=== PATIENT | female | born 1945 | race Caucasian/White ===

== ENCOUNTER 2020-06-13 10:48 | Outpatient (REF) | payer MEDICARE, SELFPAY ==
[2020-06-13 14:09] LABS: Hemoglobin 13.4 g/dl (12.0-16.0); Mean Corpuscular HGB Conc 31.9 g/dl (31.0-35.0); Mean Corpuscular Hemoglobin 30.2 pg (27.0-33.0); Mean Corpuscular Volume 94.8 fL (80-98); Mean Platelet Volume 9.8 fL (9.4-12.3); Platelet Count 247 X10*3/uL (160-400); Red Blood Count 4.43 X10*6/uL (4.20-5.50); Red Cell Distribution Width 12.3 % (11.0-16.0); White Blood Count 5.8 X10*3/uL (4.8-10.8)
[2020-06-13 14:45] LABS: Alanine Aminotransferase 21 U/L (0-31); Albumin Level 4.4 g/dL (3.5-5.0); Alkaline Phosphatase 61 U/L (39-117); Anion Gap 12 (12-20); Aspartate Amino Transferase 26 U/L (5-31); Bilirubin Total 0.4 mg/dL (0.0-1.0); Blood Urea Nitrogen 17 mg/dL (9-16); Calcium 9.1 mg/dL (8.4-10.2); Carbon Dioxide 27 mmol/L (22-29); Chloride 104 mmol/L (96-108); Cholesterol 181 mg/dL; Estimated Glomerular Filt Rate > 60; Glucose Fasting 91 mg/dL (60-99); HDL Cholesterol 71 mg/dL; LDL Cholesterol Calculated 93 mg/dl; Potassium 4.3 mmol/l (3.3-5.1); Sodium 139 mmol/L (135-145); Total Protein 7.3 g/dL (6.5-8.0); Triglycerides 85 mg/dL
[2020-06-13 14:55] LABS: TSH reflex Free T4 2.08 mIU/mL (0.32-4.0)
== END 2020-06-13 10:49 | disposition home or self-care (01) ==
LOC: HO.10HDL 10:48
PROVIDERS: Visit Provider Physician Assistant
DX: I10 Essential (primary) hypertension (principal); E78.2 Mixed hyperlipidemia; Z13.1 Encounter for screening for diabetes mellitus; Z13.29 Encounter for screening for other suspected endocrine disorder
CPT/HCPCS: 36415; 80053; 80061; 84443; 85027

== ENCOUNTER 2021-02-05 11:09 | Outpatient (REF) | payer MEDICARE, OTHER, SELFPAY ==
[2021-02-05 14:44] LABS: Alanine Aminotransferase 20 U/L (0-31); Albumin Level 4.1 g/dL (3.5-5.0); Alkaline Phosphatase 60 U/L (39-117); Anion Gap 13 (12-20); Aspartate Amino Transferase 24 U/L (5-31); Bilirubin Total 0.6 mg/dL (0.0-1.0); Blood Urea Nitrogen 13 mg/dL (9-16); Calcium 9.1 mg/dL (8.4-10.2); Carbon Dioxide 24 mmol/L (22-29); Chloride 108 mmol/L (96-108); Cholesterol 174 mg/dL; Estimated Glomerular Filt Rate > 60; Glucose Fasting 81 mg/dL (60-99); HDL Cholesterol 63 mg/dL; LDL Cholesterol Calculated 92 mg/dl; Potassium 4.5 mmol/L (3.3-5.1); Sodium 140 mmol/L (135-145); Triglycerides 99 mg/dL
== END 2021-02-05 11:10 | disposition home or self-care (01) ==
LOC: HO.10HDL 11:09
PROVIDERS: Visit Provider Nurse Practitioner Family
DX: E78.5 Hyperlipidemia, unspecified (principal); Z13.1 Encounter for screening for diabetes mellitus; Z78.0 Asymptomatic menopausal state
CPT/HCPCS: 36415; 80053; 80061

== ENCOUNTER 2021-08-28 10:48 | Outpatient (REF) | payer MEDICARE, SELFPAY ==
[2021-08-28 11:50] LABS: Estimated Average Glucose 108 mg/dL; Hemoglobin A1c % 5.4 %
[2021-08-28 11:56] LABS: Hematocrit 39.3 % (37.0-47.0); Hemoglobin 12.6 g/dl (12.0-16.0); Mean Corpuscular HGB Conc 32.1 g/dl (31.0-35.0); Mean Corpuscular Hemoglobin 29.6 pg (27.0-33.0); Mean Corpuscular Volume 92.3 fL (80.0-98.0); Mean Platelet Volume 9.2 fL (9.4-12.3); Platelet Count 246 X10*3/uL (160-400); Red Blood Count 4.26 X10*6/uL (4.20-5.50); Red Cell Distribution Width 12.7 % (11.0-16.0)
[2021-08-28 12:20] LABS: Alanine Aminotransferase 21 U/L (0-31); Albumin Level 4.2 g/dL (3.5-5.0); Alkaline Phosphatase 57 U/L (39-117); Anion Gap 12 (12-20); Aspartate Amino Transferase 25 U/L (5-31); Bilirubin Total 0.5 mg/dL (0.0-1.0); Blood Urea Nitrogen 17 mg/dL (9-16); Calcium 9.5 mg/dL (8.4-10.2); Carbon Dioxide 26 mmol/L (22-29); Chloride 105 mmol/L (96-108); Cholesterol 163 mg/dL; Estimated Glomerular Filt Rate > 60; Glucose Fasting 93 mg/dL (60-99); HDL Cholesterol 59 mg/dL; LDL Cholesterol Calculated 86 mg/dl; Potassium 4.2 mmol/L (3.3-5.1); Sodium 139 mmol/L (135-145); Total Protein 7.1 g/dL (6.5-8.0); Triglycerides 90 mg/dL
[2021-08-28 12:25] LABS: TSH reflex Free T4 1.06 uIU/mL (0.32-4.0)
== END 2021-08-28 10:49 | disposition home or self-care (01) ==
LOC: HO.LAB 10:48
PROVIDERS: PCP Physician Assistant; Visit Provider Physician Assistant
DX: Z13.1 Encounter for screening for diabetes mellitus (principal); E78.2 Mixed hyperlipidemia
CPT/HCPCS: 36415; 80053; 80061; 83036; 84443; 85027

== ENCOUNTER 2022-01-29 10:51 | Outpatient (REF) | payer MEDICARE, SELFPAY ==
--- NOTE | ~2022-01-29 | XR_ITS ---
EXAMINATION: XR CHEST CLINICAL INFORMATION: Covid 19. Short of breath COMPARISON: None TECHNIQUE: 2 views of the chest were obtained. FINDINGS: The lungs are well-expanded and clear. The heart size and pulmonary vascularity is normal. There is mild dextro scoliosis of dorsolumbar spine. XR/XR chest 2V IMPRESSION: Unremarkable chest examination.
== END 2022-01-29 10:52 | disposition home or self-care (01) ==
LOC: HO.XRAY 10:51
PROVIDERS: PCP Physician Assistant; Visit Provider Internal Medicine
DX: U07.1 COVID-19 (principal)
CPT/HCPCS: 71046

== ENCOUNTER 2022-03-12 11:35 | Outpatient (REF) | payer MEDICARE, SELFPAY ==
[2022-03-12 12:00] LABS: MANUAL DIFF FLAG NO
[2022-03-12 12:29] LABS: Basophils Absolute Auto 0.1 X10*3/uL (0.0-0.2); Basophils Percent Auto 0.8 % (0-2); Eosinophils Absolute Auto 0.2 X10*3/uL (0.0-0.4); Eosinophils Percent Auto 3.1 % (0-4); Hematocrit 40.5 % (37.0-47.0); Hemoglobin 13.5 g/dl (12.0-16.0); Imm Gran Abs Auto 0.02 X10*3/uL (0.00-0.03); Imm Gran Pct Auto 0.3 % (0.0-0.4); Lymphocytes Absolute Auto 2.6 X10*3/uL (1.2-4.9); Lymphocytes Percent Auto 41.5 % (20-40); Mean Corpuscular HGB Conc 33.3 g/dl (31.0-35.0); Mean Corpuscular Volume 92.9 fL (80.0-98.0); Mean Platelet Volume 9.2 fL (9.4-12.3); Monocytes Absolute Auto 0.5 X10*3/uL (0.1-1.2); Neutrophils Absolute Auto 2.9 x10*3/uL (2.0-8.3); Neutrophils Percent Auto 46.3 % (45-73); Platelet Count 253 X10*3/uL (160-400); Red Blood Count 4.36 X10*6/uL (4.20-5.50); Red Cell Distribution Width 12.8 % (11.0-16.0); White Blood Count 6.2 X10*3/uL (4.8-10.8)
[2022-03-12 12:55] LABS: Alanine Aminotransferase 22 U/L (0-31); Albumin Level 4.4 g/dL (3.5-5.0); Alkaline Phosphatase 59 U/L (39-117); Anion Gap 16 (12-20); Aspartate Amino Transferase 27 U/L (5-31); Bilirubin Total 0.2 mg/dL (0.0-1.0); Blood Urea Nitrogen 13 mg/dL (9-16); Calcium 9.8 mg/dL (8.4-10.2); Carbon Dioxide 26 mmol/L (22-29); Chloride 104 mmol/L (96-108); Cholesterol 169 mg/dL; Estimated Glomerular Filt Rate > 60; Glucose Fasting 86 mg/dL (60-99); HDL Cholesterol 67 mg/dL; LDL Cholesterol Calculated 78 mg/dl; Potassium 4.1 mmol/L (3.3-5.1); Sodium 142 mmol/L (135-145); Total Protein 7.4 g/dL (6.5-8.0); Triglycerides 124 mg/dL
[2022-03-12 13:01] LABS: Creatinine Urine 43.08 mg/dL; Microalbum/Creatinine Ratio Ur 378.3 ug/mg cr
[2022-03-12 13:20] LABS: TSH reflex Free T4 1.56 uIU/mL (0.32-4.0)
== END 2022-03-12 11:36 | disposition home or self-care (01) ==
LOC: HO.LAB 11:35
PROVIDERS: PCP Physician Assistant; Visit Provider Physician Assistant
DX: I10 Essential (primary) hypertension (principal)
CPT/HCPCS: 36415; 80053; 80061; 82043; 84443; 85025

== ENCOUNTER 2022-04-24 14:04 | Outpatient (REF) | payer MEDICARE, SELFPAY ==
--- NOTE | ~2022-04-24 | US_ITS ---
EXAMINATION: US RETROPERITONEAL LIMITED (RENAL ONLY) CLINICAL INFORMATION: Proteinuria, unspecified. COMPARISON: None TECHNIQUE: Real-time imaging of the kidneys. FINDINGS: RIGHT KIDNEY: 8.9 x 3.8 x 4.3 cm (SAG x AP x TRV). The kidney is normal in size, contour, and echogenicity. Renal cortical thickness is normal. No calculi or focal parenchymal lesions. No hydronephrosis. LEFT KIDNEY: 8.9 x 4.8 x 4.2 cm (SAG x AP x TRV). The kidney is normal in size, contour, and echogenicity. Renal cortical thickness is normal. No calculi or focal parenchymal lesions. No hydronephrosis. ADDITIONAL FINDINGS: Gallstones. US/US renal BI IMPRESSION: Normal renal ultrasound.
== END 2022-04-24 14:05 | disposition home or self-care (01) ==
LOC: HO.US 14:04
PROVIDERS: Visit Provider Physician Assistant
DX: R80.9 Proteinuria, unspecified (principal)
CPT/HCPCS: 76775

== ENCOUNTER 2022-07-13 14:45 | Outpatient (REF) | payer MEDICARE, SELFPAY ==
[2022-07-13 15:17] LABS: Appearance Urine Clear; Color Urine Yellow; Glucose Urine UA Negative (Negative); Leukocyte Esterase Urine Moderate (2+) (Negative); Nitrite Urine Negative (Negative); UMIC TRIGGER UA YES; Urine Blood Trace (Negative); Urine Ketones Negative (Negative); Urine Protein 30 (1+) mg/dL (Neg-Trace)
[2022-07-13 15:19] LABS: Bacteria Urine None Seen (None Seen); Hyaline Casts Urine 0-2 /LPF (0-2); RBC Urine 0-2 /HPF (0-2); Squamous Epithelial Cell Urine 0-2 /HPF (0-2)
[2022-07-13 15:41] LABS: Creatinine Urine 55.09 mg/dL; Protein/Creatinine Ratio, Ur 0.78 (<0.2); Total Protein Urine Random 43 mg/dL (<12)
[2022-07-13 15:42] LABS: Anion Gap 15 (12-20); Blood Urea Nitrogen 14 mg/dL (9-16); Calcium 9.2 mg/dL (8.4-10.2); Carbon Dioxide 24 mmol/L (22-29); Chloride 105 mmol/L (96-108); Estimated Glomerular Filt Rate > 60; Glucose Random 87 mg/dL (60-115); Potassium 3.8 mmol/L (3.3-5.1); Sodium 140 mmol/L (135-145)
== END 2022-07-13 14:46 | disposition home or self-care (01) ==
LOC: HO.LAB 14:45
PROVIDERS: PCP Physician Assistant; Visit Provider Internal Medicine Hypertension Specialist
DX: R80.9 Proteinuria, unspecified (principal)
CPT/HCPCS: 36415; 80048; 81001; 84156

== ENCOUNTER 2022-12-21 15:29 | Outpatient (REF) | payer MEDICARE, SELFPAY ==
[2022-12-21 16:41] LABS: Hematocrit 39.7 % (37.0-47.0); Mean Corpuscular HGB Conc 32.7 g/dl (31.0-35.0); Mean Corpuscular Hemoglobin 30.4 pg (27.0-33.0); Mean Platelet Volume 9.2 fL (9.4-12.3); Platelet Count 243 X10*3/uL (160-400); Red Blood Count 4.27 X10*6/uL (4.20-5.50); Red Cell Distribution Width 12.6 % (11.0-16.0); White Blood Count 7.3 X10*3/uL (4.8-10.8)
[2022-12-21 17:06] LABS: Alanine Aminotransferase 29 U/L (0-31); Albumin Level 3.9 g/dL (3.5-5.0); Alkaline Phosphatase 69 U/L (39-117); Anion Gap 16 (12-20); Aspartate Amino Transferase 30 U/L (5-31); Bilirubin Total 0.4 mg/dL (0.0-1.0); Blood Urea Nitrogen 22 mg/dL (9-16); Calcium 9.3 mg/dL (8.4-10.2); Carbon Dioxide 23 mmol/L (22-29); Chloride 106 mmol/L (96-108); Cholesterol 167 mg/dL; Estimated Glomerular Filt Rate > 60; Glucose Fasting 104 mg/dL (60-99); HDL Cholesterol 61 mg/dL; LDL Cholesterol Calculated 92 mg/dl; Potassium 4.1 mmol/L (3.3-5.1); Sodium 141 mmol/L (135-145); Total Protein 7.1 g/dL (6.5-8.0); Triglycerides 73 mg/dL
== END 2022-12-21 15:30 | disposition home or self-care (01) ==
LOC: HO.LAB 15:29
PROVIDERS: PCP Physician Assistant; Visit Provider Physician Assistant
DX: E78.2 Mixed hyperlipidemia (principal); I10 Essential (primary) hypertension
CPT/HCPCS: 36415; 80053; 80061; 85027

== ENCOUNTER 2023-03-23 11:08 | Outpatient (REF) | payer MEDICARE, SELFPAY ==
[2023-03-23 11:59] LABS: Appearance Urine Clear; Color Urine Yellow; Glucose Urine UA Negative (Negative); Leukocyte Esterase Urine Small (1+) (Negative); Nitrite Urine Negative (Negative); PH 6.5 (5.0-9.0); Specific Gravity - Urine 1.015 (1.005-1.025); UMIC TRIGGER UACC YES; Urine Blood Moderate (2+) (Negative); Urine Ketones Negative (Negative); Urine Protein 300 (3+) mg/dL (Neg-Trace)
[2023-03-23 12:02] LABS: Bacteria Urine 4+ (None Seen); Squamous Epithelial Cell Urine 0-2 /HPF (0-2); UACC Culture Trigger YES; WBC Urine 21-50 /HPF (0-5)
== END 2023-03-23 11:09 | disposition home or self-care (01) ==
LOC: HO.LAB 11:08
PROVIDERS: PCP Physician Assistant; Visit Provider Physician Assistant
DX: R39.9 Unspecified symptoms and signs involving the genitourinary system (principal)
CPT/HCPCS: 81001; 87086; 87088; 87186

== ENCOUNTER 2023-04-02 11:38 | Outpatient (REF) | payer MEDICARE, SELFPAY ==
[2023-04-02 15:05] LABS: Appearance Urine Clear; Color Urine Yellow; Glucose Urine UA Negative (Negative); Leukocyte Esterase Urine Negative (Negative); Nitrite Urine Negative (Negative); UMIC TRIGGER UACC YES; Urine Blood Small (1+) (Negative); Urine Ketones Trace mg/dL (Negative); Urine Protein >=1000 (4+) mg/dL (Neg-Trace)
[2023-04-02 15:24] LABS: Bacteria Urine None Seen (None Seen); Squamous Epithelial Cell Urine 0-2 /HPF (0-2); UACC Culture Trigger YES
== END 2023-04-02 11:39 | disposition home or self-care (01) ==
LOC: HO.LAB 11:38
PROVIDERS: PCP Physician Assistant; Visit Provider Physician Assistant
DX: R39.9 Unspecified symptoms and signs involving the genitourinary system (principal)
CPT/HCPCS: 81001; 81003; 87086

== ENCOUNTER 2023-04-21 10:41 | Outpatient (REF) | payer MEDICARE, SELFPAY ==
[2023-04-21 11:59] LABS: Appearance Urine Clear; Color Urine Yellow; Glucose Urine UA Negative (Negative); Leukocyte Esterase Urine Trace (Negative); Nitrite Urine Negative (Negative); UMIC TRIGGER UACC YES; Urine Blood Small (1+) (Negative); Urine Ketones Negative (Negative); Urine Protein 300 (3+) mg/dL (Neg-Trace)
[2023-04-21 12:32] LABS: Bacteria Urine None Seen (None Seen); Hyaline Casts Urine 0-2 /LPF (0-2); Squamous Epithelial Cell Urine 0-2 /HPF (0-2); UACC Culture Trigger YES
== END 2023-04-21 10:42 | disposition home or self-care (01) ==
LOC: HO.LAB 10:41
PROVIDERS: PCP Physician Assistant; Visit Provider Physician Assistant
DX: R39.9 Unspecified symptoms and signs involving the genitourinary system (principal)
CPT/HCPCS: 81001; 87086

== ENCOUNTER 2023-05-05 09:45 | Outpatient (AMB) | payer MEDICARE, SELFPAY ==
[2023-05-05 10:07] VITALS: BP 140/70; PULSE 66; O2SAT 98; BMI 24.8
--- NOTE | 2023-05-05 10:07 | A.OFFPC_ITS ---
Vital Signs 05/05/23 10:07 Height 5 ft 1 in Weight 131 lb 4 oz BMI 24.8 BP 140/70 H Blood Pressure Location Lt brachial Position Sitting Pulse 66 Pulse Source Palpation Pulse Oximetry (%) 98 Oxygen Delivery Method Room Air Intake Visit Reasons: f/u HTN / HLD [employer] Worker Required: No Accompanied by: Self / Same As Patient Allergies hydroxyzine Adverse Reaction (Mild, Verified 05/05/23 10:27) Palpitations Medication List - Last Reconciled 05/05/23 by Santos Chicas PA-C albuterol sulfate 90 mcg/actuation 2 puffs inhalation Q6H PRN 30 days ciprofloxacin HCl 250 mg PO BID 4 days ergocalciferol (vitamin D2) 50 mcg PO DAILY lorazepam 0.5 mg PO DAILY PRN 7 days losartan 25 mg PO DAILY 90 days multivitamin 1 tab PO DAILY simvastatin 20 mg PO BEDTIME Tobacco use date assessed: 11/04/22 Fall risk assessment: No Falls in past year Last assessed Fall Risk: 05/05/23 Dental Screening Dental Screen Date: 05/05/23 Did you have a dental visit in the last 12 months?: Yes Did you have a dental problem in the last 6 months where you did not have access to dental care?: No Was dental information given to patient?: Patient has dentist HPI f/u HTN / HLD HPI Details Patient is a 76-year-old female being evaluated today via telephone.? Patient has a past medical history significant for hyperlipidemia, essential hypertension. --> concern recurrent UTI--> has had a f ew UTIs over the last 2 months. Has been treated with ciprofloxacin which has helped. She did have positive culture for Klebsiella pneumoniae. Unclear etiologies are her recurrent UTI thus will like to see a urologist. . Generalized anxiety disorder: She reports her anxiety has been well controlled. Her has and she feels she has support with her family. She only seldomly has to use lorazepam. . Hypertension:? She reports home blood pressures have been 120s to 130 systolic. Has not had any chest discomfort or headaches.? Patient did have Tung-I related cough and was transition to losartan and feels much better. Have noted elevated microalbuminuria and has had 2+ to 3+ protein in urine for many years now. 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 Has had renal ultrasound did not show any renal cysts. .. Hyperlipidemia:? Patient continues on statin therapy without any side effect.? Most recent LDL at 76 and total cholesterol below 200. [facility] Medical History (Updated 05/05/23 @ 10:22 by Santos Chicas PA-C) COVID-19 Post-menopausal Screening for hypothyroidism Surgical History History of cataract surgery Family History Father No problems noted. Mother No problems noted. Son In good health Son In good health Son In good health Social History Housing: House Alcohol intake: current Alcohol intake frequency: holidays/special occasions only Alcohol type: wine Patient Tobacco Use Status: Never used Tobacco e-Cigarette/Vaping Use: Never Used Second Hand Smoke Exposure: No service: No Current occupational status: retired Cognitive needs: No Hearing needs: No Vision needs: Yes (reading glasses) Questionnaire Thrive Questionnaire Date Thrive assessed: 11/04/22 KELSEY-7 AMB Questionnaire KELSEY-7 Date KELSEY - 7 assessed: 11/04/22 Source: Developed by Drs. Gustavo Dickey, Kami Gavin, Deandre Francis and colleagues, with an educational soham from [employer]. Review of Systems Const Denies headache(s) Eyes Denies loss of vision ENT Denies vertigo, Denies dizziness, Denies headache(s) and Denies sore throat Card Denies chest pain, Denies leg edema and Denies lightheadedness Resp Denies cough, Denies hemoptysis and Denies wheezing GI Denies abdominal pain, Denies melena, Denies constipation, Denies diarrhea and Denies vomiting Denies urinary frequency, Denies dysuria and Denies urinary urgency Musc Denies arthralgias, Denies joint swelling, Denies numbness and Denies tingling Neuro Denies Abnormal speech present, Denies behavioral changes, Denies vertigo, Denies dizziness, Denies headache(s), Denies loss of vision, Denies memory loss, Denies numbness and Denies tingling Psych Denies anxiety, Denies behavioral changes, Denies depression, Denies memory loss and Denies panic attacks Lele/Lymph Denies easy bleeding and Denies easy bruising Aller/Immun Denies wheezing Physical exam (Primary Care) Vital Signs: Last Vital Signs Pulse 66 05/05/23 10:07 BP 140/70 H 05/05/23 10:07 Pulse Ox 98 05/05/23 10:07 Oxygen Delivery Method Room Air 05/05/23 10:07 BMI result Body Mass Index 24.8 Tobacco/Smoking Status: Tobacco use Status Tobacco use date assessed 11/04/22 05/05/23 10:09 Patient Tobacco Use Status Never used Tobacco 05/05/23 10:09 e-Cigarette/Vaping Use Never Used 05/05/23 10:09 Thrive Assessment: Date of Thrive Assessment Date Thrive assessed 11/04/22 05/05/23 10:09 Const General: healthy appearing, no acute distress, alert and awake Nutritional Appearance: well nourished Orientation/consciousness: oriented to person, oriented to place and oriented to time HENMT Ears: TM's normal bilaterally General nose exam: Normal nasal mucous membranes and turbinates present Eyes Conjunctivae: conjunctivae normal Sclerae: sclerae normal Pupils: Equal, round and reactive pupils present Neck Neck: Yes no lymphadenopathy and Yes no JVD Thyroid: Thyroid normal Carotids: no bruits Resp Effort & Inspection: normal respiratory effort and not tachypneic Auscultation: no crackles, no rales, no rhonchi and no wheezes Cardio Rate: regular rate Rhythm: regular rhythm Heart sounds: no murmurs and normal S1 and S2 GI Palpation (GI): Soft to palpation, nontender, no hepatomegaly and no splenomegaly Auscultation: normal bowel sounds Skin General skin exam: no rashes or lesions noted and dry skin Neuro General: oriented to person, oriented to place and oriented to time Cranial nerves: Yes Equal, round and reactive pupils present Speech: No Abnormal speech present Gait exam (Neuro): Normal gait present Motor exam (neuro): no tremor noted Extrem Right upper extremity: full ROM Left upper extremity: full ROM Right lower extremity: full ROM; no edema Left lower extremity: full ROM; no edema Psych Mental Status: mental status grossly normal Speech and movement: Normal speech and movement present Affect: normal affect Attitude: cooperative Thought process: Normal thought process present Assessment and Plan Assessment & Plan (1) Essential (primary) hypertension: Code(s): I10 - Essential (primary) hypertension Plan: Patient reports home blood pressures have been stable. Will continue her current dose of antihypertensive medication with goal blood pressure to be below 140/90 (2) HLD (hyperlipidemia): Code(s): E78.5 - Hyperlipidemia, unspecified Qualifiers: Hyperlipidemia type: mixed hyperlipidemia Qualified Code(s): E78.2 - Mixed hyperlipidemia Plan: Patient continues on statin therapy without any side effect. Most recent fasting lipid panels have been with excellent control over her total cholesterol and LDL. Goal LDL to remain below 130 (3) Protein in urine: Code(s): R80.9 - Proteinuria, unspecified Qualifiers: Proteinuria type: unspecified Qualified Code(s): R80.9 - Proteinuria, unspecified Plan: Has been evaluated by package winder and had gotten protein testing to which she reports was normal. Renal ultrasounds were without any significant findings. (4) Recurrent UTI: Code(s): N39.0 - Urinary tract infection, site not specified Plan: Having recurrent UTIs over last 2 months. Did have positive Klebsiella pneumonia culture. We would like to reestablish with urologist (5) SOB (shortness of breath) on exertion: Code(s): R06.02 - Shortness of breath Plan: Patient does use albuterol inhaler on a p.r.n. basis for shortness of breath and wheeze. Advised to restart allergy medication as a believe she has an allergy component to her shortness of breath and patient agrees and understands and will restart antihistamine. (6) KELSEY (generalized anxiety disorder): Code(s): F41.1 - Generalized anxiety disorder Plan: As per HPI patient is anxiety has been fairly well controlled with only p.r.n. use of lorazepam. She does feel like she has good family support. Of note has been recently from lung cancer and patient dealing with this well.. Orders: Orders Comprehensive [place]. Panel Fast 05/05/23 I10 - Essential (primary) hypertension Complete Blood Count no Diff 05/05/23 I10 - Essential (primary) hypertension Lipid Panel 05/05/23 E78.2 - Mixed hyperlipidemia Referrals Urology Referral N39.0 - Urinary tract infection, site not specified Medications: Refilled albuterol sulfate 90 mcg/actuation 2 puffs inhalation Q6H 30 days PRN 8.5 grams 1RF shortness of breath or wheezing R06.02 - Shortness of breath Discontinued ciprofloxacin HCl Discontinued Reason: Doctor's Order 250 mg PO BID 4 days 8 tabs 0RF N39.0 - Urinary tract infection, site not specified Coding Level of Care Code Est Pt Level 4 (80239) Diagnoses Essential (primary) hypertension I10 Mixed hyperlipidemia E78.2 Hyperlipidemia type: mixed hyperlipidemia Proteinuria, unspecified type R80.9 Proteinuria type: unspecified Recurrent UTI N39.0 SOB (shortness of breath) on exertion R06.02 KELSEY (generalized anxiety disorder) F41.1
== END 2023-05-05 10:43 | disposition home or self-care (01) ==
PROVIDERS: PCP Physician Assistant; Visit Provider Physician Assistant
DX: I10 Essential (primary) hypertension (principal); E78.2 Mixed hyperlipidemia; R80.9 Proteinuria, unspecified; N39.0 Urinary tract infection, site not specified; R06.02 Shortness of breath; F41.1 Generalized anxiety disorder
CPT/HCPCS: 99214

== ENCOUNTER 2023-05-05 10:52 | Outpatient (REF) | payer MEDICARE, SELFPAY ==
[2023-05-05 11:30] LABS: Hematocrit 38.9 % (37.0-47.0); Hemoglobin 12.8 g/dl (12.0-16.0); Mean Corpuscular HGB Conc 32.9 g/dl (31.0-35.0); Mean Corpuscular Hemoglobin 30.7 pg (27.0-33.0); Mean Corpuscular Volume 93.3 fL (80.0-98.0); Mean Platelet Volume 8.7 fL (9.4-12.3); Platelet Count 253 X10*3/uL (160-400); Red Blood Count 4.17 X10*6/uL (4.20-5.50); Red Cell Distribution Width 12.4 % (11.0-16.0); White Blood Count 6.4 X10*3/uL (4.8-10.8)
[2023-05-05 12:01] LABS: Alanine Aminotransferase 21 U/L (0-31); Albumin Level 3.8 g/dL (3.5-5.0); Alkaline Phosphatase 56 U/L (39-117); Anion Gap 11 (12-20); Aspartate Amino Transferase 27 U/L (5-31); Bilirubin Total 0.4 mg/dL (0.0-1.0); Blood Urea Nitrogen 14 mg/dL (9-16); Calcium 9.6 mg/dL (8.4-10.2); Carbon Dioxide 27 mmol/L (22-29); Chloride 106 mmol/L (96-108); Cholesterol 194 mg/dL (<200); Estimated Glomerular Filt Rate > 60; Glucose Fasting 93 mg/dL (60-99); HDL Cholesterol 80 mg/dL (>40); LDL Cholesterol Calculated 97 mg/dL (<100); Potassium 3.9 mmol/L (3.3-5.1); Sodium 140 mmol/L (135-145); Total Protein 7.1 g/dL (6.5-8.0); Triglycerides 89 mg/dL (<150)
[2023-05-05 12:04] LABS: Appearance Urine Clear; Color Urine Yellow; Glucose Urine UA Negative (Negative); Leukocyte Esterase Urine Negative (Negative); Nitrite Urine Negative (Negative); Specific Gravity - Urine 1.015 (1.005-1.025); UMIC TRIGGER UACC YES; Urine Blood Small (1+) (Negative); Urine Ketones Negative (Negative); Urine Protein 300 (3+) mg/dL (Neg-Trace)
[2023-05-05 12:19] LABS: Bacteria Urine None Seen (None Seen); Hyaline Casts Urine 0-2 /LPF (0-2); Squamous Epithelial Cell Urine 0-2 /HPF (0-2); WBC Urine 0-5 /HPF (0-5)
== END 2023-05-05 10:53 | disposition home or self-care (01) ==
LOC: HO.LAB 10:52
PROVIDERS: PCP Physician Assistant; Visit Provider Physician Assistant
DX: I10 Essential (primary) hypertension (principal); E78.2 Mixed hyperlipidemia; R39.9 Unspecified symptoms and signs involving the genitourinary system; R30.0 Dysuria; N39.0 Urinary tract infection, site not specified
CPT/HCPCS: 36415; 80053; 80061; 81001; 81003; 85027

== ENCOUNTER 2023-05-11 12:15 | Outpatient (AMB) | payer MEDICARE, SELFPAY ==
--- NOTE | 2023-05-11 14:36 | AM.OFFWIN_ITS ---
Intake Vital Signs 05/11/23 14:38 Height 5 ft 1 in Weight 132 lb 8 oz BMI 25.0 BP 148/72 H Blood Pressure Location Rt brachial Position Sitting Pulse 89 Pulse Source Pulse Oximeter Temp 97.9 F Temp Source Temporal Artery Scan Pulse Oximetry (%) 97 Oxygen Delivery Method Room Air Intake Visit Reasons: EP, cough, congestion (masked) Intake Note: Pt is here c/o cough and congestion for 3 days. Patient Tobacco Use Status: Never used Tobacco Allergies hydroxyzine Adverse Reaction (Mild, Verified 05/11/23 14:40) Palpitations Do you need a note to return to daycare/school/sports/work: No HPI HPI Comments History of Present Illness Details This is a 78-year-old female with a past medical history of seasonal allergies, hypertension, asthma and hyperlipidemia presenting for evaluation of a cough and sinus congestion that she has had for the past 3 days. Patient stat es her cough is most bothersome during the day and will be productive with yellow phlegm. Patient denies having any fevers, chills, ear pain, sore throat, chest pain or shortness of breath. Patient has been using an [id number] generic decongestant and her albuterol inhaler. Patient states she is uncomfortable using her albuterol inhaler over 3 times daily. [facility] Medical History COVID-19 Post-menopausal Screening for hypothyroidism Surgical History History of cataract surgery Family History Father No problems noted. Mother No problems noted. Son In good health Son In good health Son In good health Social History Housing: House Alcohol intake: current Alcohol intake frequency: holidays/special occasions only Alcohol type: wine Patient Tobacco Use Status: Never used Tobacco e-Cigarette/Vaping Use: Never Used Second Hand Smoke Exposure: No service: No Current occupational status: retired Cognitive needs: No Hearing needs: No Vision needs: Yes (reading glasses) Review of Systems Const Reports no additional complaints, Denies chills, Denies fever(s) and Denies malaise Eyes Reports as per HPI ENT Denies otalgia, Reports nasal congestion and Denies sore throat Card Reports no additional complaints, Denies chest pain, Denies dyspnea and Denies dyspnea on exertion Resp Reports cough (occasional yellow phlegm), Denies excessive phlegm production, Denies dyspnea and Denies dyspnea on exertion Musc Reports no additional complaints Psych Reports no additional complaints Aller/Immun Reports no additional complaints Physical Exam Vital Signs: Last Vital Signs Temp 97.9 F 05/11/23 14:38 Pulse 89 05/11/23 14:38 BP 148/72 H 05/11/23 14:38 Pulse Ox 97 05/11/23 14:38 Oxygen Delivery Method Room Air 05/11/23 14:38 BMI result Body Mass Index 25.0 Const General: cooperative, healthy appearing, comfortable, no acute distress, alert and awake; No lethargic Nutritional Appearance: average body habitus Orientation/consciousness: oriented to person, oriented to place, oriented to time and No lethargic Limitations: no limitations HEENT Head: Yes normal to inspection Ears: hearing grossly normal bilaterally, external ears normal, TM's normal bilaterally and EAC's normal General nose exam: Normal external nose present Face and sinus: Yes normal facial exam and No sinus tenderness Mouth: Normal oral and palatal mucosa present Teeth and gingiva: dentition normal Throat: Yes posterior oropharynx normal and No postnasal drainage Eyes Eyelids: Yes eyelids normal Conjunctivae: conjunctivae normal Sclerae: sclerae normal Pupils: Equal, round and reactive pupils present EOM: EOMs intact bilaterally Neck Lymphatic: no lymphadenopathy noted Resp Effort & Inspection: normal respiratory effort (No tachypnea), able to speak in complete sentences and no respiratory distress Auscultation: clear to auscultation bilaterally Cardio Rate: regular rate Rhythm: regular rhythm Skin General skin exam: no rashes or lesions noted Neuro General: oriented to person, oriented to place and oriented to time Cranial nerves: Yes Equal, round and reactive pupils present Psych Appearance: grossly normal Mental Status: mental status grossly normal Insight: Good insight present (Psych) Judgement: Good judgement present (Psych) Assessment & Plan Assessment & Plan (1) Upper respiratory infection: Code(s): J06.9 - Acute upper respiratory infection, unspecified Qualifiers: URI type: unspecified viral URI Qualified Code(s): J06.9 - Acute upper respiratory infection, unspecified (2) Asthma: Code(s): J45.909 - Unspecified asthma, uncomplicated Plan: Mucinex OTC with increasing her clear fluids daily. Plan Prednisone 40mg daily x 4 days; goal is to decrease albuterol use. Medications: New prednisone 40 mg (2 x 20 mg) PO DAILY 8 tabs 0RF Coding Level of Care Code Est Pt Level 3 (74565) Diagnoses Viral upper respiratory tract infection J06.9 URI type: unspecified viral URI Asthma J45.909 Time Spent (min) 20
[2023-05-11 14:38] VITALS: BP 148/72; PULSE 89; TEMP 36.6; O2SAT 97; BMI 25.0
== END 2023-05-11 15:06 | disposition home or self-care (01) ==
PROVIDERS: PCP Physician Assistant; Visit Provider Physician Assistant
DX: J06.9 Acute upper respiratory infection, unspecified (principal); J45.909 Unspecified asthma, uncomplicated
CPT/HCPCS: 99213

== ENCOUNTER 2023-06-04 09:41 | Outpatient (AMB) | payer MEDICARE, SELFPAY ==
[2023-06-04 10:57] VITALS: BP 140/80; PULSE 98; TEMP 36.3; O2SAT 97; BMI 25.1
--- NOTE | 2023-06-04 10:57 | MHC.OFFWIV ---
Intake Vital Signs 06/04/23 10:57 Height 5 ft 1 in Weight 133 lb BMI 25.1 BP 140/80 H Blood Pressure Location Lt brachial Position Sitting Pulse 98 Pulse Source Pulse Oximeter Temp 97.3 F Temp Source Temporal Artery Scan Pulse Oximetry (%) 97 Oxygen Delivery Method Room Air Intake Visit Reasons: EST/asthma flair up ([phone]) Intake Note: pt is here today for asthma flair up started 2 weeks ago Patient Tobacco Use Status: Never used Tobacco Allergies hydroxyzine Adverse Reaction (Mild, Verified 06/04/23 10:57) Palpitations losartan Adverse Reaction (Mild, Uncoded 05/26/23 14:50) Cough Do you need a note to return to daycare/school/sports/work: No HPI HPI Comments History of Present Illness Details This is a 78-year-old female with past medical history significant for asthma who presented to the walk-in clinic complaining mild shortness of breath and dry cough x5 days. Patient was seen in the walk-in clinic on 05/11/2023 for similar symptoms and she was sent home on PO prednisone 40 mg daily x4 days. She states that her symptoms improved but quickly returned after shoveling snow in the cold. She reports an associated dry cough. She denies any fevers or chills. [facility] Medical History COVID-19 Post-menopausal Screening for hypothyroidism Surgical History History of cataract surgery Family History Father No problems noted. Mother No problems noted. Son In good health Son In good health Son In good health Social History Housing: House Alcohol intake: current Alcohol intake frequency: holidays/special occasions only Alcohol type: wine Patient Tobacco Use Status: Never used Tobacco e-Cigarette/Vaping Use: Never Used Second Hand Smoke Exposure: No service: No Current occupational status: retired Cognitive needs: No Hearing needs: No Vision needs: Yes (reading glasses) Review of Systems Const All systems reviewed & are unremarkable except as noted in HPI and below Reports no additional complaints Eyes Reports no additional complaints ENT Reports no additional complaints Card Reports no additional complaints Resp Reports no additional complaints GI Reports no additional complaints Reports no additional complaints Musc Reports no additional complaints Skin/Breast Reports system reviewed and no additional complaints, except as documented Neuro Reports no additional complaints Psych Reports no additional complaints Endo Reports no additional complaints Lele/Lymph Reports no additional complaints Aller/Immun Reports no additional complaints Physical Exam Vital Signs: Last Vital Signs Temp 97.3 F 06/04/23 10:57 Pulse 98 06/04/23 10:57 BP 140/80 H 06/04/23 10:57 Pulse Ox 97 06/04/23 10:57 Oxygen Delivery Method Room Air 06/04/23 10:57 BMI result Body Mass Index 25.1 Const Other: Vital signs reviewed. Constitutional: Non-toxic appearing. No acute distress. Well-developed and well-nourished. HEENT: Normocephalic and atraumatic. Skin: Warm and dry. No rashes or lesions noted. Neck: Full and painless range of motion. No cervical lymphadenopathy. Cardio: Regular rate and rhythm. No murmurs, gallops, or rubs. No lower extremity edema. No JVD. Pulmonary: No respiratory distress. No accessory muscle usage. Scattered wheezing and rhonchorous breath sounds. Gastrointestinal: Soft, nontender, and nondistended in all 4 quadrants. Musculoskeletal: Normal range of motion in joints throughout the body. No deformity or other signs of injury. Neuro: Alert and oriented x4. Cranial nerves 2-12 grossly intact. No focal deficits appreciated. Psych: Normal mood and affect. Assessment & Plan Assessment & Plan (1) Acute asthmatic bronchitis: Code(s): J45.909 - Unspecified asthma, uncomplicated Plan: This is a 78-year-old female with history of asthma who presented to the walk-in clinic complaining of dyspnea on exertion and a dry cough. On physical examination, she is expiratory wheezing and rhonchorous breath sounds throughout. History and physical most consistent with acute asthmatic bronchitis likely secondary to environmental exposure. Patient is maintaining oxygen saturations on room air and she is in no acute respiratory distress. Patient was sent home on a p.o. prednisone taper as well as p.o. benzonatate 100 mg 3 times daily as needed for cough. Patient was encouraged to discuss maintenance treatment such as Symbicort/Advair with her primary care physician given frequent asthma exacerbations. Patient was advised to follow-up here or proceed to the emergency room if she were to develop persistent or worsening symptoms. Patient verbalized understanding and is agreeable with the plan. Medications: New prednisone Take 4 tablets daily x3 days followed by 3 tablets daily x3 days followed by 2 tablets daily x3 days followed by 1 tablet daily x3 days followed by 1/2 tablet daily x2 days 10 mg PO DIRECTED 31 tabs 0RF benzonatate 100 mg PO TID PRN 21 caps 0RF cough Coding Level of Care Code Est Pt Level 3 (68906) Diagnoses Acute asthmatic bronchitis J45.909
== END 2023-06-04 11:37 | disposition home or self-care (01) ==
PROVIDERS: PCP Physician Assistant; Visit Provider Physician Assistant Medical
DX: J45.909 Unspecified asthma, uncomplicated (principal)
CPT/HCPCS: 99213

== ENCOUNTER 2023-07-15 12:10 | Outpatient (REF) | payer MEDICARE, SELFPAY ==
[2023-07-15 13:50] LABS: Anion Gap 11 (12-20); Blood Urea Nitrogen 22 mg/dL (9-16); Calcium 9.7 mg/dL (8.4-10.2); Carbon Dioxide 28 mmol/L (22-29); Chloride 106 mmol/L (96-108); Estimated Glomerular Filt Rate > 60; Sodium 141 mmol/L (135-145)
== END 2023-07-15 12:11 | disposition home or self-care (01) ==
LOC: HO.LAB 12:10
PROVIDERS: PCP Physician Assistant; Visit Provider Internal Medicine Hypertension Specialist
DX: I10 Essential (primary) hypertension (principal)
CPT/HCPCS: 36415; 80051; 82310; 82565; 84520

== ENCOUNTER 2023-07-22 11:53 | Outpatient (AMB) | payer MEDICARE, SELFPAY ==
--- NOTE | 2023-07-22 11:53 | HO.NEPHOV ---
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 Mother No problems noted. Son In good health Son In good health Son In good health Social History Housing: House Alcohol intake: current Alcohol intake frequency: holidays/special occasions only Alcohol type: wine Patient Tobacco Use Status: Never used Tobacco e-Cigarette/Vaping Use: Never Used Second Hand Smoke Exposure: No service: No Current occupational status: retired Cognitive needs: No Hearing needs: No Vision needs: Yes (reading glasses) Vital Signs 07/22/23 11:55 Height 5 ft 1 in Weight 133 lb BMI 25.1 BP 156/80 H Blood Pressure Location Rt brachial Position Sitting Pulse 90 Pulse Source Pulse Oximeter Pulse Oximetry (%) 99 Oxygen Delivery Method Room Air Physical Exam Vital Signs: Last Vital Signs Pulse 90 07/22/23 11:55 BP 156/80 H 07/22/23 11:55 Pulse Ox 99 07/22/23 11:55 Oxygen Delivery Method Room Air 07/22/23 11:55 BMI result Body Mass Index 25.1 Const Other: Vital signs reviewed. Constitutional: Non-toxic appearing. No acute distress. Well-developed and well-nourished. HEENT: Normocephalic and atraumatic. Skin: Warm and dry. No rashes or lesions noted. Neck: Full and painless range of motion. No cervical lymphadenopathy. Cardio: Regular rate and rhythm. No murmurs, gallops, or rubs. No lower extremity edema. No JVD. Pulmonary: No respiratory distress. No accessory muscle usage. Scattered wheezing and rhonchorous breath sounds. Gastrointestinal: Soft, nontender, and nondistended in all 4 quadrants. Musculoskeletal: Normal range of motion in joints throughout the body. No deformity or other signs of injury. Neuro: Alert and oriented x4. Cranial nerves 2-12 grossly intact. No focal deficits appreciated. Psych: Normal mood and affect. General: cooperative, healthy appearing, comfortable and no acute distress; No confusion Orientation/consciousness: No confusion Resp Effort & Inspection: normal respiratory effort and able to speak in complete sentences Auscultation: clear to auscultation bilaterally Cardio Jugular venous distension: no JVD Rate: regular rate Rhythm: regular rhythm Heart sounds: S1 normal heart sound present and S2 normal heart sound present Neuro General: No confusion Gait exam (Neuro): Normal gait present Extrem General: Yes no clubbing, cyanosis or edema Psych Mental Status: mental status grossly normal Affect: normal affect Attitude: cooperative Judgement: Good judgement present (Psych) Assessment & Plan Assessment & Plan (1) Essential (primary) hypertension: Code(s): I10 - Essential (primary) hypertension (2) Recurrent UTI: Code(s): N39.0 - Urinary tract infection, site not specified (3) Protein in urine: Code(s): R80.9 - Proteinuria, unspecified Qualifiers: Proteinuria type: unspecified Qualified Code(s): R80.9 - Proteinuria, unspecified Plan Elderly woman with HTN and non nephrotic range proteinuria and normal renal function Unable to tolerate ACEi and ARB due to cough Will quantify proteinuria and initiate work up for preotinuria Keep Amlodipine at 2.5 mg QD ; 5mg might cause more edema Add Spironolactone 12.5 mg QD to block ZOIE and gradually titrate dose Orders: Orders UA and rflx microscopic Today I10 - Essential (primary) hypertension, N39.0 - Urinary tract infection, site not specified Creatinine Urine Today I10 - Essential (primary) hypertension, N39.0 - Urinary tract infection, site not specified Total Protein Urine Random Today I10 - Essential (primary) hypertension, N39.0 - Urinary tract infection, site not specified Basic Metabolic Panel Today I10 - Essential (primary) hypertension, N39.0 - Urinary tract infection, site not specified Medications: New spironolactone 25 mg PO DAILY 0.5 tabs 1RF Changed From amlodipine 5 mg PO DAILY 30 tabs 1RF I10 - Essential (primary) hypertension To amlodipine 2.5 mg PO DAILY 30 tabs 1RF I10 - Essential (primary) hypertension Coding Level of Care Code New Pt Level 4 (84594) Diagnoses Essential (primary) hypertension I10 Recurrent UTI N39.0 Proteinuria, unspecified type R80.9 Proteinuria type: unspecified Results Reviewed Nephrology Results: Hgb 12.8 g/dl (12.0-16.0) 05/05/23 WBC 6.4 X10*3/uL (4.8-10.8) 05/05/23 Plt Count 253 X10*3/uL (160-400) 05/05/23 Sodium 141 mmol/L (135-145) 07/15/23 Potassium 4.0 mmol/L (3.3-5.1) 07/15/23 Chloride 106 mmol/L (96-108) 07/15/23 Carbon Dioxide 28 mmol/L (22-29) 07/15/23 BUN 22 mg/dL (9-16) H 07/15/23 Creatinine 0.72 mg/dL (0.5-1.4) 07/15/23 Calcium 9.7 mg/dL (8.4-10.2) 07/15/23 Urine Protein 300 (3+) mg/dL (Neg-Trace) H 05/05/23 Urine Creatinine 55.09 mg/dL 07/13/22 Protein/Creatinin Ratio 0.78 (<0.2) H 07/13/22 Renal US 04/24/22
[2023-07-22 11:55] VITALS: BP 156/80; PULSE 90; O2SAT 99; BMI 25.1
== END 2023-07-22 12:19 | disposition home or self-care (01) ==
PROVIDERS: PCP Physician Assistant; Visit Provider Internal Medicine Hypertension Specialist
DX: I10 Essential (primary) hypertension (principal); N39.0 Urinary tract infection, site not specified; R80.9 Proteinuria, unspecified
CPT/HCPCS: 99204; 99214

== ENCOUNTER → 2023-07-22 11:53 | Outpatient (BNVA) | payer MEDICARE, SELFPAY | PROVIDERS: PCP Physician Assistant; Visit Provider Internal Medicine Hypertension Specialist | DX: I10 Essential (primary) hypertension (principal); N39.0 Urinary tract infection, site not specified; R80.9 Proteinuria, unspecified | CPT/HCPCS: 36415; 80048; 81001; 82570; 84156; 99202 ==

== ENCOUNTER 2023-07-22 12:42 | Outpatient (REF) | payer MEDICARE, SELFPAY ==
[2023-07-22 13:35] LABS: Appearance Urine Clear; Color Urine Yellow; Glucose Urine UA Negative (Negative); Leukocyte Esterase Urine Trace (Negative); Nitrite Urine Negative (Negative); PH 5.5 (5.0-9.0); UMIC TRIGGER UA YES; Urine Blood Moderate (2+) (Negative); Urine Ketones Negative (Negative); Urine Protein >=1000 (4+) mg/dL (Neg-Trace)
[2023-07-22 13:38] LABS: Anion Gap 14 (12-20); Blood Urea Nitrogen 15 mg/dL (9-16); Calcium 10.2 mg/dL (8.4-10.2); Carbon Dioxide 29 mmol/L (22-29); Chloride 104 mmol/L (96-108); Estimated Glomerular Filt Rate > 60; Glucose Random 94 mg/dL (60-115); Sodium 143 mmol/L (135-145)
[2023-07-22 13:39] LABS: Bacteria Urine None Seen (None Seen); Squamous Epithelial Cell Urine 0-2 /HPF (0-2)
[2023-07-22 13:48] LABS: Creatinine Urine 82.27 mg/dL
[2023-07-22 13:59] LABS: Total Protein Urine Random 497 mg/dL (<12)
== END 2023-07-22 12:43 | disposition home or self-care (01) ==
LOC: HO.10HDL 12:42
PROVIDERS: Visit Provider Internal Medicine Hypertension Specialist
DX: Z13.89 Encounter for screening for other disorder (principal)
CPT/HCPCS: 36415; 80048; 81001; 82570; 84156

== ENCOUNTER 2023-08-20 12:25 | Outpatient (REF) | payer MEDICARE, SELFPAY ==
[2023-08-20 14:14] LABS: Appearance Urine Clear; Color Urine Yellow; Glucose Urine UA Negative (Negative); Leukocyte Esterase Urine Negative (Negative); Nitrite Urine Negative (Negative); PH 5.5 (5.0-9.0); Specific Gravity - Urine >= 1.030 (1.005-1.025); UMIC TRIGGER UA YES; Urine Blood Moderate (2+) (Negative); Urine Ketones Trace mg/dL (Negative); Urine Protein 300 (3+) mg/dL (Neg-Trace)
[2023-08-20 14:32] LABS: Bacteria Urine None Seen (None Seen); Granular Casts Urine Present; Squamous Epithelial Cell Urine 0-2 /HPF (0-2); WBC Urine 0-5 /HPF (0-5)
== END 2023-08-20 12:26 | disposition home or self-care (01) ==
LOC: HO.LAB 12:25
PROVIDERS: PCP Physician Assistant; Visit Provider Internal Medicine Hypertension Specialist
DX: I10 Essential (primary) hypertension (principal); N39.0 Urinary tract infection, site not specified
CPT/HCPCS: 81001

== ENCOUNTER 2023-09-07 10:27 | Outpatient (AMB) | payer MEDICARE, SELFPAY ==
[2023-09-07 10:29] VITALS: BP 130/70; PULSE 76; O2SAT 97; BMI 25.1
--- NOTE | 2023-09-07 10:29 | HO.NEPHOV ---
HPI HPI Comments History of Present Illness Details Elderly woman with HTN , referred fot HTN and Proteinuria She was on Lisinopril - Discontinued due to cought Losartan aslo caused cough Now on Amlodipine 2.5 mg QD Has mild edema Amlodipine increased to 5 mg - she is yet to [employer] prescription h/o recurrent UTI Has 300+ protein by dipstick In feb 2023, Urine Pro: cr was 0.78 PFSH Medical History COVID-19 Post-menopausal Screening for hypothyroidism Surgical History History of cataract surgery Family History Father No problems noted. Mother No problems noted. Son In good health Son In good health Son In good health Social History Housing: House Alcohol intake: current Alcohol intake frequency: holidays/special occasions only Alcohol type: wine Patient Tobacco Use Status: Never used Tobacco e-Cigarette/Vaping Use: Never Used Second Hand Smoke Exposure: No service: No Current occupational status: retired Cognitive needs: No Hearing needs: No Vision needs: Yes (reading glasses) Vital Signs 09/07/23 10:29 Height 5 ft 1 in Weight 133 lb BMI 25.1 BP 130/70 Blood Pressure Location Lt brachial Position Sitting Pulse 76 Pulse Source Pulse Oximeter Pulse Oximetry (%) 97 Oxygen Delivery Method Room Air Physical Exam Vital Signs: Last Vital Signs Pulse 76 09/07/23 10:29 BP 130/70 09/07/23 10:29 Pulse Ox 97 09/07/23 10:29 Oxygen Delivery Method Room Air 09/07/23 10:29 BMI result Body Mass Index 25.1 Assessment & Plan Assessment & Plan (1) Essential (primary) hypertension: Code(s): I10 - Essential (primary) hypertension (2) Recurrent UTI: Code(s): N39.0 - Urinary tract infection, site not specified (3) Protein in urine: Code(s): R80.9 - Proteinuria, unspecified Qualifiers: Proteinuria type: unspecified Qualified Code(s): R80.9 - Proteinuria, unspecified (4) Proteinuria: Code(s): R80.9 - Proteinuria, unspecified Plan Elderly woman with HTN and non nephrotic range proteinuria and normal renal function Unable to tolerate ACEi and ARB due to cough Still has protienuria - about 4 gm with microhematuria Check serologies- ordered Keep Amlodipine at 2.5 mg QD ; 5mg might cause more edema Keep Spironolactone 12.5 mg QD to block ZOIE and gradually titrate dose Orders: Orders UA and rflx microscopic 1 Month R80.9 - Proteinuria, unspecified Creatinine Urine 1 Month N05.9 - 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, R80.9 - Proteinuria, unspecified Anti Glomerular Basement Memb 1 Month R80.9 - Proteinuria, unspecified Total Protein Urine Random 1 Month R80.9 - Proteinuria, unspecified Myeloperoxidase Antibody 1 Month R80.9 - Proteinuria, unspecified Neutrophil Cytoplasma Ab 1 Month R80.9 - Proteinuria, unspecified Proteinase 3 PR3 Antibodies 1 Month R80.9 - Proteinuria, unspecified Complement C3 1 Month R80.9 - Proteinuria, unspecified Complement C4 1 Month R80.9 - Proteinuria, unspecified Coding Level of Care Code Est Pt Level 4 (70826) Diagnoses Essential (primary) hypertension I10 Recurrent UTI N39.0 Proteinuria, unspecified type R80.9 Proteinuria type: unspecified Results Reviewed Nephrology Results: Hgb 12.8 g/dl (12.0-16.0) 05/05/23 WBC 6.4 X10*3/uL (4.8-10.8) 05/05/23 Plt Count 253 X10*3/uL (160-400) 05/05/23 Sodium 143 mmol/L (135-145) 07/22/23 Potassium 4.0 mmol/L (3.3-5.1) 07/22/23 Chloride 104 mmol/L (96-108) 07/22/23 Carbon Dioxide 29 mmol/L (22-29) 07/22/23 BUN 15 mg/dL (9-16) 07/22/23 Creatinine 0.77 mg/dL (0.5-1.4) 07/22/23 Calcium 10.2 mg/dL (8.4-10.2) 07/22/23 Urine Protein 300 (3+) mg/dL (Neg-Trace) H 08/20/23 Urine Creatinine 82.27 mg/dL 07/22/23
== END 2023-09-07 10:50 | disposition home or self-care (01) ==
PROVIDERS: PCP Physician Assistant; Visit Provider Internal Medicine Hypertension Specialist
DX: I10 Essential (primary) hypertension (principal); N39.0 Urinary tract infection, site not specified; R80.9 Proteinuria, unspecified
CPT/HCPCS: 99214

== ENCOUNTER → 2023-09-07 10:27 | Outpatient (BNVA) | payer MEDICARE, SELFPAY | PROVIDERS: PCP Physician Assistant; Visit Provider Internal Medicine Hypertension Specialist | DX: N39.0 Urinary tract infection, site not specified (principal); I10 Essential (primary) hypertension; R80.9 Proteinuria, unspecified | CPT/HCPCS: 99212 ==

== ENCOUNTER 2023-10-25 13:47 | Outpatient (REF) | payer MEDICARE, SELFPAY ==
[2023-10-25 14:51] LABS: Appearance Urine Clear; Color Urine Yellow; Glucose Urine UA Negative (Negative); Leukocyte Esterase Urine Negative (Negative); Nitrite Urine Negative (Negative); PH 5.5 (5.0-9.0); UMIC TRIGGER UACC YES; Urine Blood Moderate (2+) (Negative); Urine Ketones Negative (Negative); Urine Protein >=1000 (4+) mg/dL (Neg-Trace)
[2023-10-25 15:04] LABS: Bacteria Urine None Seen (None Seen); Squamous Epithelial Cell Urine 0-2 /HPF (0-2); WBC Urine 0-5 /HPF (0-5)
[2023-10-25 16:31] LABS: Creatinine Urine 100.67 mg/dL
[2023-10-25 19:21] LABS: Total Protein Urine Random 712 mg/dL (<12)
[2023-10-26 12:33] LABS: Complement C3 102 mg/dL (83-193)
[2023-10-27 19:59] LABS: Anti Glomerular Basement Memb <1.0 AI; Myeloperoxidase Antibody <1.0 AI; Proteinase 3 PR3 Antibodies <1.0 AI
[2023-10-29 13:58] LABS: Neutrophil Cyto Ab Screen NEGATIVE (NEGATIVE)
== END 2023-10-25 13:48 | disposition home or self-care (01) ==
LOC: HO.LAB 13:47
PROVIDERS: Absent Provider Internal Medicine Hypertension Specialist; PCP Physician Assistant; Visit Provider Physician Assistant
DX: R80.9 Proteinuria, unspecified (principal); N05.9 Unspecified nephritic syndrome with unspecified morphologic changes
CPT/HCPCS: 36415; 81001; 81003; 82570; 83520; 84156; 86021; 86036; 86160

== ENCOUNTER 2023-11-10 09:46 | Outpatient (AMB) | payer MEDICARE, SELFPAY ==
[2023-11-10 09:42] VITALS: BP 129/77; PULSE 75; O2SAT 98; BMI 24.9
--- NOTE | 2023-11-10 09:42 | MHC.PC.OV ---
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 Accompanied by: Self / Same As Patient Allergies hydroxyzine Adverse Reaction (Mild, Verified 11/10/23 10:12) Palpitations losartan Adverse Reaction (Mild, Uncoded 11/10/23 10:12) Cough Medication List - Last Reconciled 11/10/23 by Santos Chicas PA-C acetaminophen (Tylenol Extra Strength) 500 mg PO Q6H PRN albuterol sulfate 90 mcg/actuation 2 puffs inhalation Q6H PRN 30 days amlodipine 2.5 mg PO DAILY cetirizine (Zyrtec) 10 mg PO DAILY PRN ergocalciferol (vitamin D2) 50 mcg PO DAILY lorazepam 0.5 mg PO DAILY PRN 7 days mecobalamin (vitamin B12) 1,000 mcg PO DAILY multivitamin 1 tab PO DAILY omega [id number] oil 1,000 mg (120 mg-180 mg) (Fish Oil) 1 cap PO DAILY prednisolone acetate 1% drps ophthalmic (eye) simvastatin 20 mg PO BEDTIME spironolactone 25 mg PO DAILY Tobacco use date assessed: 11/10/23 Fall risk assessment: No Falls in past year Last assessed Fall Risk: 11/10/23 Dental Screening Dental Screen Date: 11/10/23 Did you have a dental visit in the last 12 months?: Yes Did you have a dental problem in the last 6 months where you did not have access to dental care?: No Was dental information given to patient?: Patient has dentist HPI 6 Month F/U HPI Details Patient is a 78-year-old female being evaluated today via telephone.? Patient has a past medical history significant for hyperlipidemia, essential hypertension. . Generalized anxiety disorder: She reports her anxiety has been well controlled. She only seldomly has to use lorazepam. . Hypertension:? She reports home blood pressures have been 120s to 130 systolic. Has not had any chest discomfort or headaches.? Have noted elevated microalbuminuria and has had 2+ to 3+ protein in urine for many years now. 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 Has had renal ultrasound did not show any renal cysts. Has had significant workup thus for for secondary causes of proteinuria though has been negative. Has been making med adjustment with stone derrickman and rigger. Now on CCB and aldactone and blood pressure have been stable at home. .. Hyperlipidemia:? Patient continues on statin therapy without any side effect.? Most recent LDL at 76 and total cholesterol below 200. Laboratory Tests 03/12/22 07/13/22 12/21/22 11:59 15:04 15:42 RBC 4.27 Creatinine 0.79 Random Glucose Fasting Glucose 104 H Cholesterol 169 167 U Random Total Pro tein 43 H 05/05/23 07/22/23 10/25/23 11:03 12:50 14:05 RBC Creatinine Random Glucose 94 Fasting Glucose Cholesterol 194 U Random Total Pro tein 712 H [facility] Medical History Protein in urine COVID-19 Post-menopausal Screening for hypothyroidism Surgical History History of cataract surgery Family History Father No problems noted. Mother No problems noted. Son In good health Son In good health Son In good health Social History Housing: House Alcohol intake: current Alcohol intake frequency: holidays/special occasions only Alcohol type: wine Patient Tobacco Use Status: Never used Tobacco e-Cigarette/Vaping Use: Never Used Second Hand Smoke Exposure: No service: No Current occupational status: retired Cognitive needs: No Hearing needs: No Vision needs: Yes (reading glasses) Questionnaire PHQ-9 Over the last 2 weeks, how often have you been bothered by any of the following problems? 1. Little interest or pleasure in doing things: not at all 2. Feeling down, depressed, or hopeless: not at all 3. Trouble falling or staying asleep, or sleeping too much: not at all 4. Feeling tired or having little energy: not at all 5. Poor appetite or overeating: not at all 6. Feeling bad about yourself - or that you are a failure or have let yourself or your family down: not at all 7. Trouble concentrating on things, such as reading the newspaper or watching television: not at all 8. Moving or speaking so slowly that other people could have noticed. Or the opposite - being so fidgety or restless that you have been moving around a lot more than usual: not at all 9. Thoughts that you would be better off or of hurting yourself in some way: not at all Total score: 0 Depression Screening Interpretation: Negative Depression Screening Done: Yes 00510 - PHQ-9 Billing: Yes Source: Developed by Drs. Gustavo Dickey, Kami Gavin, Deandre Francis and colleagues, with an educational soham from [employer]. Thrive Questionnaire Date Thrive assessed: 11/10/23 I am a: Patient What is your living situation today?: I have a steady place to live Within the past 12 months, did the food you bought not last and you didn't have the money to get more?: Never true Within the past 12 months, did you worry whether your food would run out before you got money to buy more?: Never true Do you have trouble paying for medicines?: No Do you have trouble getting transportation to medical appointments?: No Do you have trouble paying your heating and electricity bill?: No Do you have trouble taking care of your child, family member or friend?: No Do you have trouble with day-to-day activities such as bathing, preparing meals, shopping, managing finances, etc.?: No Are you currently unemployed and looking for a job?: No Are you interested in more education?: No Please select the resources that you would like help with: None Currently or been in a relationship where the following occur: no concerns reported THRIVE Score: 0 AUDIT C Alcohol Use Questionnaire (AUDIT-C) 1. How often do you have a drink containing alcohol?: Never 3. How often do you have six or more drinks on one occasion?: Never Total Score: 0 KELSEY-7 AMB Questionnaire KELSEY-7 Date KELSEY - 7 assessed: 11/10/23 Feeling nervous, anxious, or on edge: 0 = Not at all Not being able to stop or control worryin = Not at all Worrying too much about different things: 0 = Not at all Trouble relaxin = Not at all Being so restless that it is hard to sit still: 0 = Not at all Becoming easily annoyed or irritable: 0 = Not at all Feeling afraid as if something awful might happen: 0 = Not at all Total KELSEY-7 score (0-4 normal; 5-9 mild; 10-14 moderate; 15-21 severe): 0 Source: Developed by Drs. Gustavo Dickey, Kami Gavin, Deandre Francis and colleagues, with an educational soham from [employer]. KELSEY-7 Assessment Billing KELSEY-7 Assessment Tool: KELSEY-7 Assessment 08578 Review of Systems Const Denies headache(s) Eyes Denies loss of vision ENT Denies vertigo, Denies dizziness, Denies headache(s) and Denies sore throat Card Denies chest pain, Denies leg edema and Denies lightheadedness Resp Denies cough, Denies hemoptysis and Denies wheezing GI Denies abdominal pain, Denies melena, Denies constipation, Denies diarrhea and Denies vomiting Denies urinary frequency, Denies dysuria and Denies urinary urgency Musc Denies arthralgias, Denies joint swelling, Denies numbness and Denies tingling Neuro Denies behavioral changes, Denies vertigo, Denies dizziness, Denies headache(s), Denies loss of vision, Denies memory loss, Denies numbness and Denies tingling Psych Denies anxiety, Denies behavioral changes, Denies depression, Denies memory loss and Denies panic attacks Lele/Lymph Denies easy bleeding and Denies easy bruising Aller/Immun Denies wheezing Physical exam (Primary Care) Vital Signs: Last Vital Signs Pulse 75 11/10/23 09:42 BP 129/77 11/10/23 09:42 Pulse Ox 98 11/10/23 09:42 Oxygen Delivery Method Room Air 11/10/23 09:42 BMI result Body Mass Index 24.9 Tobacco/Smoking Status: Tobacco use Status Tobacco use date assessed 11/10/23 11/10/23 09:46 Patient Tobacco Use Status Never used Tobacco 11/10/23 09:46 e-Cigarette/Vaping Use Never Used 11/10/23 09:46 PHQ-9: PHQ-9 Score PHQ-9: Total score 0 11/10/23 10:10 Depression Screening Interpretation: Negative Thrive Assessment: Date of Thrive Assessment Date Thrive assessed 11/10/23 11/10/23 09:46 Currently or been in a relationship where the following occur: no concerns reported Telehealth Telehealth Telehealth Platform: Telephone Location of provider rendering services: practice address Location of patient: address on file Patient Identification confirmed using: Name, : Yes Telehealth method: voice only Patient verbally consented to treatment: Yes Patient verbally consented to billing insurance company: Yes Patient informed of any privacy concerns related to visit: Yes Minutes spent on Phone/Video with Pt.: 11 Assessment and Plan Assessment & Plan (1) Essential (primary) hypertension: Code(s): I10 - Essential (primary) hypertension Plan: Patient reports home blood pressures have been stable. She reports blood pressures at home are 120s to 130 systolic. Continues to follow Nephrology. Will continue her current dose of antihypertensive medication with goal blood pressure to be below 140/90 (2) HLD (hyperlipidemia): Code(s): E78.5 - Hyperlipidemia, unspecified Qualifiers: Hyperlipidemia type: mixed hyperlipidemia Qualified Code(s): E78.2 - Mixed hyperlipidemia Plan: Patient continues on statin therapy without any side effect. Most recent fasting lipid panels have been with excellent control over her total cholesterol and LDL. Goal LDL to remain below 130 (3) Protein in urine: Code(s): R80.9 - Proteinuria, unspecified Qualifiers: Proteinuria type: unspecified Qualified Code(s): R80.9 - Proteinuria, unspecified Plan: Has been evaluated by stone derrickman and rigger and had gotten protein testing to which she reports was normal. Renal ultrasounds were without any significant findings. (4) KELSEY (generalized anxiety disorder): Code(s): F41.1 - Generalized anxiety disorder Plan: As per HPI patient is anxiety has been fairly well controlled with only p.r.n. use of lorazepam. She does feel like she has good family support. Of note has been recently from lung cancer and patient dealing with this well.. Orders: Orders Comprehensive [place]. Panel Fast 11/10/23 I10 - Essential (primary) hypertension Complete Blood Count no Diff 11/10/23 I10 - Essential (primary) hypertension Lipid Panel 11/10/23 E78.2 - Mixed hyperlipidemia Patient Instructions: Goal: Blood pressure to remain below 140/90 Barriers: Adherence to physical activity and healthy eating habits Coding Level of Care Code Tele Est Pt Level 4 (78048) Complex EM visit Add On G2211 Diagnoses Essential (primary) hypertension I10 Mixed hyperlipidemia E78.2 Hyperlipidemia type: mixed hyperlipidemia Proteinuria, unspecified type R80.9 Proteinuria type: unspecified KELSEY (generalized anxiety disorder) F41.1 Additional Codes KELSEY-7 Assessment Billing - KELSEY-7 Assessment Tool: KELSEY-7 Assessment 64063 ([id number])
== END 2023-11-10 10:41 | disposition home or self-care (01) ==
LOC: HO.HMGH 09:46
PROVIDERS: PCP Physician Assistant; Visit Provider Physician Assistant
DX: I10 Essential (primary) hypertension (principal); E78.2 Mixed hyperlipidemia; R80.9 Proteinuria, unspecified; F41.1 Generalized anxiety disorder
CPT/HCPCS: 99442

== ENCOUNTER 2023-11-24 10:06 | Outpatient (REF) | payer MEDICARE, SELFPAY ==
[2023-11-24 12:29] LABS: Appearance Urine Clear; Color Urine Yellow; Glucose Urine UA Negative (Negative); Leukocyte Esterase Urine Negative (Negative); Nitrite Urine Negative (Negative); PH 6.5 (5.0-9.0); UMIC TRIGGER UA YES; Urine Blood Small (1+) (Negative); Urine Ketones Negative (Negative); Urine Protein 300 (3+) mg/dL (Neg-Trace)
[2023-11-24 12:35] LABS: Bacteria Urine None Seen (None Seen); Hyaline Casts Urine 0-2 /LPF (0-2); Squamous Epithelial Cell Urine 0-2 /HPF (0-2); WBC Urine 0-5 /HPF (0-5)
== END 2023-11-24 10:07 | disposition home or self-care (01) ==
LOC: HO.LAB 10:06
PROVIDERS: PCP Physician Assistant; Visit Provider Internal Medicine Hypertension Specialist
DX: R80.9 Proteinuria, unspecified (principal)
CPT/HCPCS: 81001

== ENCOUNTER 2023-11-30 10:24 | Outpatient (AMB) | payer MEDICARE, SELFPAY ==
[2023-11-30 10:26] VITALS: BP 162/74; PULSE 90; O2SAT 97; BMI 25.0
--- NOTE | 2023-11-30 10:26 | HO.NEPHOV_ITS ---
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 Accompanied by: Self / Same As Patient Allergies hydroxyzine Adverse Reaction (Mild, Verified 11/30/23 10:28) Palpitations losartan Adverse Reaction (Mild, Uncoded 11/10/23 10:12) Cough Medication List - Last Reconciled 11/30/23 by Pedro Denise MD acetaminophen (Tylenol Extra Strength) 500 mg PO Q6H PRN albuterol sulfate 90 mcg/actuation 2 puffs inhalation Q6H PRN 30 days amlodipine 2.5 mg PO DAILY cetirizine (Zyrtec) 10 mg PO DAILY PRN ergocalciferol (vitamin D2) 50 mcg PO DAILY lorazepam 0.5 mg PO DAILY PRN 7 days mecobalamin (vitamin B12) 1,000 mcg PO DAILY multivitamin 1 tab PO DAILY omega 7-vkh-dfi-fish oil 1,000 mg (120 mg-180 mg) (Fish Oil) 1 cap PO DAILY prednisolone acetate 1% drps ophthalmic (eye) prednisone 5 mg PO DAILY simvastatin 20 mg PO BEDTIME spironolactone 25 mg PO DAILY HPI Comments Details: Elderly woman with HTN , referred fot HTN and Proteinuria She was on Lisinopril - Discontinued due to cought Losartan aslo caused cough Now on Amlodipine 2.5 mg QD Has mild edema Amlodipine increased to 5 mg - 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 Few days ago she had a wasp sting. No shortness of breath PFSH Medical History Protein in urine COVID-19 Post-menopausal Screening for hypothyroidism Surgical History History of cataract surgery Family History Father No problems noted. Mother No problems noted. Son In good health Son In good health Son In good health Social History Housing: House Alcohol intake: current Alcohol intake frequency: holidays/special occasions only Alcohol type: wine Patient Tobacco Use Status: Never used Tobacco e-Cigarette/Vaping Use: Never Used Second Hand Smoke Exposure: No service: No Current occupational status: retired Cognitive needs: No Hearing needs: No Vision needs: Yes (reading glasses) Physical Exam Vital Signs: Last Vital Signs Pulse 90 11/30/23 10:26 BP 140/70 H 11/30/23 10:41 Pulse Ox 97 11/30/23 10:26 Oxygen Delivery Method Room Air 11/30/23 10:26 BMI result Body Mass Index 25.0 Const General: comfortable; No acute distress Orientation/consciousness: patient oriented x3 Eyes General: appearance normal, both eyes and all related structures Visual Roque: normal visual roque by confrontation Neck Neck: Yes supple and Yes no JVD Resp Effort & Inspection: normal respiratory effort and respiratory effort not decreased Auscultation: rhonchi Cardio Palpation: no palpable S3 and no palpable S4 Heart sounds: no rubs GI Inspection: Yes normal to inspection Palpation (GI): Soft to palpation Percussion: Yes normal to percussion Auscultation: normal bowel sounds General: Yes no CVA tenderness Back/Spine/Pelvis Back: no CVA tenderness Skin Other: Erythematous swelling left side of neck and in both ankles following wasp sting General skin exam: no petechiae and no purpura Neuro General: patient oriented x3 and no focal motor deficits Extrem General: No clubbing and No edema Results Reviewed Nephrology Results: Hgb 12.8 g/dl (12.0-16.0) 05/05/23 WBC 6.4 X10*3/uL (4.8-10.8) 05/05/23 Plt Count 253 X10*3/uL (160-400) 05/05/23 Sodium 143 mmol/L (135-145) 07/22/23 Potassium 4.0 mmol/L (3.3-5.1) 07/22/23 Chloride 104 mmol/L (96-108) 07/22/23 Carbon Dioxide 29 mmol/L (22-29) 07/22/23 BUN 15 mg/dL (9-16) 07/22/23 Creatinine 0.77 mg/dL (0.5-1.4) 07/22/23 Calcium 10.2 mg/dL (8.4-10.2) 07/22/23 Urine Protein 300 (3+) mg/dL (Neg-Trace) H 11/24/23 Urine Creatinine 100.67 mg/dL 10/25/23 Assessment & Plan Assessment & Plan (1) Essential (primary) hypertension: Code(s): I10 - Essential (primary) hypertension Category: Medical (2) Recurrent UTI: Code(s): N39.0 - Urinary tract infection, site not specified Category: Medical (3) Protein in urine: Code(s): R80.9 - Proteinuria, unspecified Category: Medical Qualifiers: Proteinuria type: unspecified Qualified Code(s): R80.9 - Proteinuria, unspecified (4) Proteinuria: Code(s): R80.9 - Proteinuria, unspecified Category: Medical Plan Elderly woman with HTN and non nephrotic range proteinuria and normal renal function Unable to tolerate ACEi and ARB due to cough Still has protienuria - about 4 gm with microhematuria Serologies were all normal Repeat urine protein creatinine ratio ordered if she has persistent nephrotic r royce proteinuria I would consider a kidney biopsy. Keep Amlodipine at 2.5 mg QD ; 5mg might cause more edema Keep Spironolactone 12.5 mg QD to block ZOIE and gradually titrate dose Ordered prednisone 5 mg p.o. daily for 3 days Orders: Orders Total Protein Urine Random Today R80.9 - Proteinuria, unspecified Creatinine Urine Today R80.9 - Proteinuria, unspecified Medications: New prednisone 5 mg PO DAILY 3 tabs 0RF Coding Level of Care Code Est Pt Level 4 (06995) Diagnoses Essential (primary) hypertension I10 Recurrent UTI N39.0 Proteinuria, unspecified type R80.9 Proteinuria type: unspecified
[2023-11-30 10:41] VITALS: BP 140/70
== END 2023-11-30 10:49 | disposition home or self-care (01) ==
PROVIDERS: PCP Physician Assistant; Visit Provider Internal Medicine Hypertension Specialist
DX: I10 Essential (primary) hypertension (principal); N39.0 Urinary tract infection, site not specified; R80.9 Proteinuria, unspecified
CPT/HCPCS: 99214

== ENCOUNTER 2023-11-30 10:52 | Outpatient (REF) | payer MEDICARE, SELFPAY ==
[2023-11-30 13:38] LABS: Creatinine Urine 45.34 mg/dL
[2023-11-30 14:08] LABS: Total Protein Urine Random 460 mg/dL (<12)
== END 2023-11-30 10:53 | disposition home or self-care (01) ==
LOC: HO.10HDLNP 10:52
PROVIDERS: Visit Provider Internal Medicine Hypertension Specialist
DX: R80.9 Proteinuria, unspecified (principal)
CPT/HCPCS: 82570; 84156; 99212

== ENCOUNTER 2024-03-01 14:15 | Outpatient (REF) | payer MEDICARE, SELFPAY ==
[2024-03-01 15:11] LABS: Appearance Urine Clear; Color Urine Yellow; Glucose Urine UA Negative (Negative); Leukocyte Esterase Urine Negative (Negative); Nitrite Urine Negative (Negative); Specific Gravity - Urine 1.015 (1.005-1.025); UMIC TRIGGER UACC YES; Urine Blood Small (1+) (Negative); Urine Ketones Negative (Negative); Urine Protein 300 (3+) mg/dL (Neg-Trace)
[2024-03-01 15:25] LABS: Bacteria Urine None Seen (None Seen); Hyaline Casts Urine 0-2 /LPF (0-2); Squamous Epithelial Cell Urine 0-2 /HPF (0-2); WBC Urine 0-5 /HPF (0-5)
== END 2024-03-01 14:16 | disposition home or self-care (01) ==
LOC: HO.LAB 14:15
PROVIDERS: PCP Physician Assistant; Visit Provider Physician Assistant
DX: R30.0 Dysuria (principal); N39.0 Urinary tract infection, site not specified
CPT/HCPCS: 81001

== ENCOUNTER 2024-03-13 09:18 | Outpatient (REF) | payer MEDICARE, SELFPAY ==
[2024-03-13 11:55] LABS: Appearance Urine Clear; Color Urine Yellow; Glucose Urine UA Negative (Negative); Leukocyte Esterase Urine Negative (Negative); Nitrite Urine Negative (Negative); PH 6.5 (5.0-9.0); Specific Gravity - Urine 1.015 (1.005-1.025); UMIC TRIGGER UA YES; Urine Blood Small (1+) (Negative); Urine Ketones Negative (Negative); Urine Protein 300 (3+) mg/dL (Neg-Trace)
[2024-03-13 12:17] LABS: Bacteria Urine 4+ (None Seen); Hyaline Casts Urine 0-2 /LPF (0-2); Squamous Epithelial Cell Urine 0-2 /HPF (0-2); WBC Clumps Urine Present; WBC Urine 21-50 /HPF (0-5)
== END 2024-03-13 09:19 | disposition home or self-care (01) ==
LOC: HO.10HDLNP 09:18
PROVIDERS: Visit Provider Internal Medicine Hypertension Specialist
DX: I10 Essential (primary) hypertension (principal); N39.0 Urinary tract infection, site not specified
CPT/HCPCS: 81001

== ENCOUNTER 2024-03-14 14:01 | Outpatient (REF) | payer MEDICARE, SELFPAY ==
[2024-03-14 14:50] LABS: Appearance Urine Clear; Color Urine Yellow; Glucose Urine UA Negative (Negative); Leukocyte Esterase Urine Trace (Negative); Nitrite Urine Negative (Negative); PH 6.5 (5.0-9.0); UMIC TRIGGER UA YES; Urine Blood Small (1+) (Negative); Urine Ketones Negative (Negative); Urine Protein 300 (3+) mg/dL (Neg-Trace)
[2024-03-14 15:13] LABS: Bacteria Urine None Seen (None Seen); Hyaline Casts Urine 0-2 /LPF (0-2); Squamous Epithelial Cell Urine 0-2 /HPF (0-2)
== END 2024-03-14 14:02 | disposition home or self-care (01) ==
LOC: HO.LAB 14:01
PROVIDERS: PCP Physician Assistant; Visit Provider Internal Medicine Hypertension Specialist
DX: N39.0 Urinary tract infection, site not specified (principal); R80.9 Proteinuria, unspecified; B96.89 Other specified bacterial agents as the cause of diseases classified elsewhere
CPT/HCPCS: 81001; 87086; 87088; 87186

== ENCOUNTER 2024-03-16 11:58 | Outpatient (AMB) | payer MEDICARE, SELFPAY ==
[2024-03-16 12:00] VITALS: BP 124/68; PULSE 77; O2SAT 98; BMI 24.6
--- NOTE | 2024-03-16 12:00 | HO.NEPHOV ---
Vital Signs 03/16/24 12:00 Height 5 ft 1 in Weight 130 lb BMI 24.6 BP 124/68 Blood Pressure Location Lt brachial Position Sitting Pulse 77 Pulse Source Pulse Oximeter Pulse Oximetry (%) 98 Oxygen Delivery Method Room Air Intake Visit Reasons: 3 Month F/U/ Conf Manager Biostatistics Required: No Accompanied by: Self / Same As Patient Allergies hydroxyzine Adverse Reaction (Mild, Verified 03/16/24 12:02) Palpitations losartan Adverse Reaction (Mild, Uncoded 11/10/23 10:12) Cough Medication List - Last Reconciled 03/16/24 by Pedro Denise MD acetaminophen (Tylenol Extra Strength) 500 mg PO Q6H PRN albuterol sulfate 90 mcg/actuation 2 puffs inhalation Q6H PRN 30 days amlodipine 2.5 mg PO DAILY cetirizine (Zyrtec) 10 mg PO DAILY PRN ciprofloxacin HCl 250 mg PO BID ergocalciferol (vitamin D2) 50 mcg PO DAILY lorazepam 0.5 mg PO DAILY PRN 7 days mecobalamin (vitamin B12) 1,000 mcg PO DAILY multivitamin 1 tab PO DAILY omega 7-ssm-nwe-fish oil 1,000 mg (120 mg-180 mg) (Fish Oil) 1 cap PO DAILY prednisolone acetate 1% drps ophthalmic (eye) prednisone 5 mg PO DAILY simvastatin 20 mg PO BEDTIME spironolactone 25 mg PO DAILY HPI Comments Details: Elderly woman with HTN , referred fot HTN and Proteinuria She was on Lisinopril - Discontinued due to cought Losartan aslo caused cough Now on Amlodipine 2.5 mg QD Has mild edema Amlodipine increased to 5 mg - 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 Few days ago she had a wasp sting. No shortness of breath 03/16/24 HAd dysuria Culture was done and positive for E Coli Today she is asymptomatic ! [facility] Medical History Protein in urine COVID-19 Post-menopausal Screening for hypothyroidism Surgical History History of cataract surgery Family History Father No problems noted. Mother No problems noted. Son In good health Son In good health Son In good health Social History Housing: House Alcohol intake: current Alcohol intake frequency: holidays/special occasions only Alcohol type: wine Patient Tobacco Use Status: Never used Tobacco e-Cigarette/Vaping Use: Never Used Second Hand Smoke Exposure: No service: No Current occupational status: retired Cognitive needs: No Hearing needs: No Vision needs: Yes (reading glasses) Physical Exam Vital Signs: Last Vital Signs Pulse 77 03/16/24 12:00 BP 124/68 03/16/24 12:00 Pulse Ox 98 03/16/24 12:00 Oxygen Delivery Method Room Air 03/16/24 12:00 BMI result Body Mass Index 24.6 Const General: comfortable; No acute distress Orientation/consciousness: patient oriented x3 Eyes General: appearance normal, both eyes and all related structures Visual Roque: normal visual roque by confrontation Neck Neck: Yes supple and Yes no JVD Resp Effort & Inspection: normal respiratory effort and respiratory effort not decreased Auscultation: rhonchi Cardio Palpation: no palpable S3 and no palpable S4 Heart sounds: no rubs GI Inspection: Yes normal to inspection Palpation (GI): Soft to palpation Percussion: Yes normal to percussion Auscultation: normal bowel sounds General: Yes no CVA tenderness Back/Spine/Pelvis Back: no CVA tenderness Skin General skin exam: no petechiae and no purpura Neuro General: patient oriented x3 and no focal motor deficits Extrem General: No clubbing and No edema Results Reviewed Nephrology Results: Sodium 143 mmol/L (135-145) 07/22/23 Potassium 4.0 mmol/L (3.3-5.1) 07/22/23 Chloride 104 mmol/L (96-108) 07/22/23 Carbon Dioxide 29 mmol/L (22-29) 07/22/23 BUN 15 mg/dL (9-16) 07/22/23 Creatinine 0.77 mg/dL (0.5-1.4) 07/22/23 Calcium 10.2 mg/dL (8.4-10.2) 07/22/23 Urine Protein 300 (3+) mg/dL (Neg-Trace) H 03/14/24 Urine Creatinine 45.34 mg/dL 11/30/23 Assessment & Plan Assessment & Plan (1) Essential (primary) hypertension: Code(s): I10 - Essential (primary) hypertension Category: Medical (2) Recurrent UTI: Code(s): N39.0 - Urinary tract infection, site not specified Category: Medical (3) Protein in urine: Code(s): R80.9 - Proteinuria, unspecified Category: Medical Qualifiers: Proteinuria type: unspecified Qualified Code(s): R80.9 - Proteinuria, unspecified (4) Proteinuria: Code(s): R80.9 - Proteinuria, unspecified Category: Medical Plan Elderly woman with HTN and non nephrotic range proteinuria and normal renal function Unable to tolerate ACEi and ARB due to cough Still has protienuria - about 4 gm with microhematuria Serologies were all normal Repeat urine protein creatinine ratio ordered today Overall renal function is stable Keep Amlodipine at 2.5 mg QD ; 5mg might cause more edema Keep Spironolactone 12.5 mg QD to block ZOIE and gradually titrate dose Urine Positive for E Coli- 100K colonies Started Cipro Orders: Orders Protein Electrophoresis, Serum Today R80.9 - Proteinuria, unspecified UA and rflx microscopic Today R80.9 - Proteinuria, unspecified Creatinine Urine Today R80.9 - Proteinuria, unspecified Phospholipase A2 Receptor Pnl Today R80.9 - Proteinuria, unspecified Basic Metabolic Panel Today R80.9 - Proteinuria, unspecified Complete Blood Count Auto Diff Today R80.9 - Proteinuria, unspecified Total Protein Urine Random Today R80.9 - Proteinuria, unspecified Coding Level of Care Code Est Pt Level 4 (74073) Diagnoses Essential (primary) hypertension I10 Recurrent UTI N39.0 Proteinuria, unspecified type R80.9 Proteinuria type: unspecified
== END 2024-03-16 16:36 | disposition home or self-care (01) ==
PROVIDERS: PCP Physician Assistant; Visit Provider Internal Medicine Hypertension Specialist
DX: I10 Essential (primary) hypertension (principal); N39.0 Urinary tract infection, site not specified; R80.9 Proteinuria, unspecified
CPT/HCPCS: 99214

== ENCOUNTER → 2024-03-16 11:58 | Outpatient (BNVA) | payer MEDICARE, SELFPAY | PROVIDERS: PCP Physician Assistant; Visit Provider Internal Medicine Hypertension Specialist ==

== ENCOUNTER 2024-03-16 12:25 | Outpatient (REF) | payer MEDICARE, SELFPAY ==
[2024-03-16 13:28] LABS: Appearance Urine Clear; Color Urine Yellow; Glucose Urine UA Negative (Negative); Leukocyte Esterase Urine Trace (Negative); Nitrite Urine Negative (Negative); UMIC TRIGGER UA YES; Urine Blood Small (1+) (Negative); Urine Ketones Negative (Negative); Urine Protein 300 (3+) mg/dL (Neg-Trace)
[2024-03-16 13:29] LABS: Bacteria Urine None Seen (None Seen); Hyaline Casts Urine 0-2 /LPF (0-2); Squamous Epithelial Cell Urine 0-2 /HPF (0-2); WBC Urine 21-50 /HPF (0-5)
[2024-03-16 13:51] LABS: MANUAL DIFF FLAG NO
[2024-03-16 14:05] LABS: Basophils Absolute Auto 0.1 X10*3/uL (0.0-0.2); Basophils Percent Auto 0.7 % (0-2); Eosinophils Absolute Auto 0.2 X10*3/uL (0.0-0.4); Eosinophils Percent Auto 3.4 % (0-4); Hematocrit 37.2 % (37.0-47.0); Hemoglobin 12.6 g/dl (12.0-16.0); Imm Gran Abs Auto 0.01 X10*3/uL (0.00-0.03); Imm Gran Pct Auto 0.1 % (0.0-0.4); Lymphocytes Absolute Auto 2.9 X10*3/uL (1.2-4.9); Lymphocytes Percent Auto 43.4 % (20-40); Mean Corpuscular HGB Conc 33.9 g/dl (31.0-35.0); Mean Corpuscular Hemoglobin 31.6 pg (27.0-33.0); Mean Corpuscular Volume 93.2 fL (80.0-98.0); Mean Platelet Volume 9.3 fL (9.4-12.3); Monocytes Absolute Auto 0.5 X10*3/uL (0.1-1.2); Monocytes Percent Auto 7.9 % (2-11); Neutrophils Percent Auto 44.5 % (45-73); Platelet Count 269 X10*3/uL (160-400); Red Blood Count 3.99 X10*6/uL (4.20-5.50); Red Cell Distribution Width 12.4 % (11.0-16.0); White Blood Count 6.7 X10*3/uL (4.8-10.8)
[2024-03-16 14:21] LABS: Anion Gap 11 (12-20); Blood Urea Nitrogen 19 mg/dL (9-16); Calcium 9.4 mg/dL (8.4-10.2); Carbon Dioxide 28 mmol/L (22-29); Chloride 106 mmol/L (96-108); Estimated Glomerular Filt Rate > 60; Glucose Random 87 mg/dL (60-115); Potassium 4.1 mmol/L (3.3-5.1); Sodium 141 mmol/L (135-145)
[2024-03-16 14:49] LABS: Creatinine Urine 74.34 mg/dL
[2024-03-16 15:13] LABS: Total Protein Urine Random 417 mg/dL (<12)
[2024-03-17 13:33] LABS: Prot Elec - Albumin 3.6 g/dL (3.8-4.8); Prot Elec - Alpha1 0.3 g/dL (0.2-0.3); Prot Elec - Alpha2 1.2 g/dL (0.5-0.9); Prot Elec - Beta 1 0.4 g/dL (0.4-0.6); Prot Elec - Beta 2 0.4 g/dL (0.2-0.5); Prot Elec - Gamma 0.7 g/dL (0.8-1.7); Prot Elec - Total Protein 6.7 g/dL (6.1-8.1)
[2024-03-23 00:44] LABS: Phospholipase A2 IgG ELISA <4 RU/mL; Phospholipase A2 IgG IFA NEGATIVE (NEGATIVE)
== END 2024-03-16 12:26 | disposition home or self-care (01) ==
LOC: HO.10HDL 12:25
PROVIDERS: Visit Provider Internal Medicine Hypertension Specialist
DX: R80.9 Proteinuria, unspecified (principal); I10 Essential (primary) hypertension; N39.0 Urinary tract infection, site not specified
CPT/HCPCS: 36415; 80048; 81001; 82570; 83520; 84156; 84165; 85025; 86255; 99212

== ENCOUNTER 2024-03-28 12:26 | Outpatient (REF) | payer MEDICARE, SELFPAY | END 2024-03-28 12:27 | disposition home or self-care (01) | LOC: HO.LAB 12:26 | PROVIDERS: PCP Physician Assistant; Referring Provider Internal Medicine Nephrology; Visit Provider Internal Medicine Hypertension Specialist | DX: N39.0 Urinary tract infection, site not specified (principal) | CPT/HCPCS: 87086 ==

== ENCOUNTER 2024-04-11 10:04 | Outpatient (AMB) | payer MEDICARE, SELFPAY ==
--- NOTE | 2024-04-11 11:02 | AM.OFFWIN_ITS ---
Intake Vital Signs 04/11/24 11:03 Height 5 ft 1 in Weight 131 lb BMI 24.7 BP 138/80 Blood Pressure Location Lt brachial Position Sitting Pulse 70 Pulse Source Pulse Oximeter Temp 98.2 F Temp Source Oral Pulse Oximetry (%) 98 Oxygen Delivery Method Room Air Intake Visit Reasons: EP Cough Intake Note: Patient here for cough that has been present for about 2 weeks now Patient Tobacco Use Status: Never used Tobacco Allergies hydroxyzine Adverse Reaction (Mild, Verified 04/11/24 11:03) Palpitations losartan Adverse Reaction (Mild, Uncoded 04/11/24 11:03) Cough Do you need a note to return to daycare/school/sports/work: No HPI HPI Comments History of Present Illness Details The patient is a 78-year-old female presenting with a persistent cough. She reports that the cough began approximately two weeks ago, initially related to a cold which has resolved except for this lingering cough. She mentions that this symptom tends to persist beyond the resolution of a typical cold, a pattern she has noticed in the past. The cough is described as productive, with the co elena of sputum evolving from green to light yellow. Associated symptoms include a slight difficulty in breathing as she has a history of asthma. Her asthma management includes the use of an albuterol inhaler, which she notes she has been using more frequently than usual. She specifies having used the inhaler a few hours prior to the visit, and confirms that she is not on any additional asthma medications. Her oxygen saturation was measured at 98% in the office setting. She denies additional symptoms such as sinus or ear pain, fever, shortness of breath, or wheezing outside of the slight variation with the cold. She tested negative twice for COVID-19 over the last two weeks. The patient recounts past treatments with prednisone for similar episodes, which she describes as highly effective, the last treatments being administered in June and another course concurrently in the past due to a non-related wasp sting incident. [facility] Medical History Protein in urine COVID-19 Post-menopausal Screening for hypothyroidism Surgical History History of cataract surgery Family History Father No problems noted. Mother No problems noted. Son In good health Son In good health Son In good health Social History Housing: House Alcohol intake: current Alcohol intake frequency: holidays/special occasions only Alcohol type: wine Patient Tobacco Use Status: Never used Tobacco e-Cigarette/Vaping Use: Never Used Second Hand Smoke Exposure: No service: No Current occupational status: retired Cognitive needs: No Hearing needs: No Vision needs: Yes (reading glasses) Review of Systems Const All systems reviewed & are unremarkable except as noted in HPI and below Physical Exam Vital Signs: Last Vital Signs Temp 98.2 F 04/11/24 11:03 Pulse 70 04/11/24 11:03 BP 138/80 04/11/24 11:03 Pulse Ox 98 04/11/24 11:03 Oxygen Delivery Method Room Air 04/11/24 11:03 BMI result Body Mass Index 24.7 General: Cooperative, healthy appearing, comfortable and no acute distress Orientation/consciousness: Patient oriented x3 Limitations: No limitations Head: Normal to inspection Ears: Hearing grossly normal bilaterally, external ears normal and TM's normal bilaterally, ears slightly red but not infected Nose: Normal external nose present, Normal nares present and No nasal discharge present Face and sinus: Normal facial exam and Yes sinuses nontender Mouth: Normal oral and palatal mucosa present and moist mucous membranes Throat: Yes tonsils normal, Yes uvula midline. Posterior oropharynx erythema, throat slightly red likely from coughing Eyes: Appearance normal, both eyes and all related structures Neck: Normal visual inspection Respirtory: left lobe lower expiratory wheeze. Normal respiratory effort, able to speak in complete sentences, Actively coughing, no respiratory distress, not tachypneic, no tripod positioning and no use of accessory muscles Cardiovascular: Regular rate and rhythm. Normal S1 and S2 Skin: No rashes or lesions noted Neuro: Patient oriented x3 Extremities: Normal to inspection and Yes no clubbing, cyanosis or edema Assessment & Plan Assessment & Plan (1) Atypical pneumonia: Code(s): J18.9 - Pneumonia, unspecified organism Plan: For asthma exacerbation, the patient will continue using her albuterol inhaler as needed. Given the persistence of symptoms and previous effectiveness, a course of prednisone at 20 mg daily for 5 days is prescribed to manage inflammation. For suspected atypical pneumonia as a differential diagnosis, a Z-Edgar azithromycin) will be prescribed as an empirical treatment. The patient will take two pills on the first day followed by one pill per day for the next four days to target the specific bacteria associated with atypical pneumonia and reduce lung inflammation. The patient is advised to continue using Robitussin or equivalent medication for symptom control and to closely monitor for any escalation of symptoms such as increased respiratory distress, high fever, or other concerning signs. There will be no further COVID testing today due to recent negative results. The patient is advised to return or seek emergency care if symptoms do not improve or worsen. Medications: New azithromycin For 250 mg dose pack: take 500 mg today (day 1), then 250 mg for 4 days (days 2-5) PO 6 tabs 0RF prednisone 20 mg PO QAM 5 tabs 0RF Coding Level of Care Code Est Pt Level 3 (34595) Diagnoses Atypical pneumonia J18.9
[2024-04-11 11:03] VITALS: BP 138/80; PULSE 70; TEMP 36.8; O2SAT 98; BMI 24.7
== END 2024-04-11 11:46 | disposition home or self-care (01) ==
PROVIDERS: PCP Physician Assistant; Visit Provider Physician Assistant
DX: J18.9 Pneumonia, unspecified organism (principal)

== ENCOUNTER → 2024-04-11 10:04 | Outpatient (BNVA) | payer MEDICARE, SELFPAY | PROVIDERS: PCP Physician Assistant; Visit Provider Physician Assistant | DX: J18.9 Pneumonia, unspecified organism (principal) | CPT/HCPCS: 99212 ==

== ENCOUNTER 2024-04-25 09:34 | Outpatient (REF) | payer MEDICARE, SELFPAY ==
[2024-04-25 13:30] LABS: Appearance Urine Clear; Color Urine Yellow; Glucose Urine UA Negative (Negative); Leukocyte Esterase Urine Negative (Negative); Nitrite Urine Negative (Negative); PH 5.5 (5.0-9.0); UMIC TRIGGER UACC YES; Urine Blood Small (1+) (Negative); Urine Ketones Negative (Negative); Urine Protein 300 (3+) mg/dL (Neg-Trace)
[2024-04-25 13:48] LABS: Bacteria Urine None Seen (None Seen); Hyaline Casts Urine 0-2 /LPF (0-2); RBC Urine 0-2 /HPF (0-2); Squamous Epithelial Cell Urine 0-2 /HPF (0-2); WBC Urine 0-5 /HPF (0-5)
[2024-04-25 14:12] LABS: Hematocrit 36.6 % (37.0-47.0); Hemoglobin 12.1 g/dl (12.0-16.0); Mean Corpuscular HGB Conc 33.1 g/dl (31.0-35.0); Mean Corpuscular Hemoglobin 31.4 pg (27.0-33.0); Mean Corpuscular Volume 95.1 fL (80.0-98.0); Mean Platelet Volume 9.3 fL (9.4-12.3); Platelet Count 239 X10*3/uL (160-400); Red Blood Count 3.85 X10*6/uL (4.20-5.50); White Blood Count 6.3 X10*3/uL (4.8-10.8)
[2024-04-25 18:41] LABS: Alanine Aminotransferase 29 U/L (0-31); Albumin Level 3.6 g/dL (3.5-5.0); Alkaline Phosphatase 58 U/L (39-117); Anion Gap 10 (12-20); Aspartate Amino Transferase 36 U/L (5-31); Bilirubin Total 0.3 mg/dL (0.0-1.0); Blood Urea Nitrogen 17 mg/dL (9-16); Calcium 9.1 mg/dL (8.4-10.2); Carbon Dioxide 27 mmol/L (22-29); Chloride 107 mmol/L (96-108); Cholesterol 200 mg/dL (<200); Estimated Glomerular Filt Rate > 60; Glucose Fasting 87 mg/dL (60-99); HDL Cholesterol 75 mg/dL (>40); LDL Cholesterol Calculated 106 mg/dL (<100); Potassium 3.9 mmol/L (3.3-5.1); Sodium 140 mmol/L (135-145); Total Protein 6.6 g/dL (6.5-8.0); Triglycerides 97 mg/dL (<150)
== END 2024-04-25 09:35 | disposition home or self-care (01) ==
LOC: HO.HMGCLDS 09:34
PROVIDERS: PCP Physician Assistant; Visit Provider Physician Assistant
DX: I10 Essential (primary) hypertension (principal); E78.2 Mixed hyperlipidemia
CPT/HCPCS: 36415; 80053; 80061; 81001; 85027

== ENCOUNTER 2024-05-01 10:44 | Outpatient (AMB) | payer MEDICARE, SELFPAY ==
[2024-05-01 11:10] VITALS: BP 148/70; PULSE 76; O2SAT 98; BMI 25.2
--- NOTE | 2024-05-01 11:10 | MHC.PC.OV ---
Vital Signs 05/01/24 11:10 Height 5 ft 1 in Weight 133 lb 2 oz BMI 25.2 BP 148/70 H Blood Pressure Location Lt brachial Position Sitting Pulse 76 Pulse Source Pulse Oximeter Pulse Oximetry (%) 98 Oxygen Delivery Method Room Air Intake Visit Reasons: f/u HTN/ HLD Resident Buyer Required: No Accompanied by: Self / Same As Patient Allergies hydroxyzine Adverse Reaction (Mild, Verified 05/01/24 11:15) Palpitations losartan Adverse Reaction (Mild, Uncoded 05/01/24 11:15) Cough Medication List - Last Reconciled 05/01/24 by Santos Chicas PA-C acetaminophen (Tylenol Extra Strength) 500 mg PO Q6H PRN albuterol sulfate 90 mcg/actuation 2 puffs inhalation Q6H PRN 30 days amlodipine 2.5 mg PO DAILY cetirizine (Zyrtec) 10 mg PO DAILY PRN ergocalciferol (vitamin D2) 50 mcg PO DAILY lorazepam 0.5 mg PO DAILY PRN 7 days mecobalamin (vitamin B12) 1,000 mcg PO DAILY multivitamin 1 tab PO DAILY omega 1-duv-hrp-fish oil 1,000 (120-180) mg (Fish Oil) 1 cap PO DAILY simvastatin 20 mg PO BEDTIME spironolactone 25 mg PO DAILY Tobacco use date assessed: 11/10/23 Fall risk assessment: No Falls in past year Last assessed Fall Risk: 05/01/24 Dental Screening Dental Screen Date: 11/10/23 HPI f/u HTN/ HLD HPI Details Patient is a 79-year-old female here today for follow-up visit.? Patient has a past medical history significant for hyperlipidemia, essential hypertension. Was seen last month an atypical pneumonia was treated with antibiotics. She wonders if she can get pain new pneumonia vaccine. . Generalized anxiety disorder: She reports her anxiety has been well controlled. She only seldomly has to use lorazepam. . Hypertension:? She reports home blood pressures have been 120s to 130 systolic. Today blood pressure elevated the office. ? White coat hypertension. Has not had any chest discomfort or headaches.? Have noted elevated microalbuminuria and has had 2+ to 3+ protein in urine for many years now. She has followed up with support group manager . Has had renal ultrasound did not show any renal cysts. Has had significant workup thus for for secondary causes of proteinuria though has been negative. Has been making med adjustment with support group manager. Now on CCB and aldactone and blood pressure have been stable at home. .. Hyperlipidemia:? Patient continues on statin therapy without any side effect.? Most recent lipid panel showing slightly elevated total cholesterol 200. Laboratory Tests 03/14/24 03/16/24 04/25/24 14:10 12:36 09:38 RBC 3.85 L Hgb 12.1 Creatinine 0.81 AST 36 H Cholesterol 200 H LDL Cholesterol, C alc 106 H Urine Protein 300 (3+) H 300 (3+) H 04/25/24 09:45 RBC Hgb Creatinine AST Cholesterol LDL Cholesterol, C alc Urine Protein 300 (3+) H . PFSH Medical History Protein in urine COVID-19 Post-menopausal Screening for hypothyroidism Surgical History History of cataract surgery Family History Father No problems noted. Mother No problems noted. Son In good health Son In good health Son In good health Social History Housing: House Alcohol intake: current Alcohol intake frequency: holidays/special occasions only Alcohol type: wine Patient Tobacco Use Status: Never used Tobacco e-Cigarette/Vaping Use: Never Used Second Hand Smoke Exposure: No service: No Current occupational status: retired Cognitive needs: No Hearing needs: No Vision needs: Yes (reading glasses) Questionnaire Thrive Questionnaire Date Thrive assessed: 11/10/23 KELSEY-7 AMB Questionnaire KELSEY-7 Date KELSEY - 7 assessed: 11/10/23 Source: Developed by Drs. Gustavo Dickey, Kami Gavin, Deandre Francis and colleagues, with an educational soham from [employer]. Review of Systems Const Denies headache(s) Eyes Denies loss of vision ENT Denies vertigo, Denies dizziness, Denies headache(s), Reports nasal congestion, Reports post nasal drip and Reports sinus pain Card Denies chest pain, Denies leg edema and Denies lightheadedness Resp Denies cough, Denies hemoptysis and Denies wheezing GI Denies abdominal pain, Denies melena, Denies constipation, Denies diarrhea and Denies vomiting Denies urinary frequency, Denies dysuria and Denies urinary urgency Musc Denies arthralgias, Denies joint swelling, Denies numbness and Denies tingling Neuro Denies Abnormal speech present, Denies behavioral changes, Denies vertigo, Denies dizziness, Denies headache(s), Denies loss of vision, Denies memory loss, Denies numbness and Denies tingling Psych Denies anxiety, Denies behavioral changes, Denies depression, Denies memory loss and Denies panic attacks Lele/Lymph Denies easy bleeding and Denies easy bruising Aller/Immun Denies wheezing Physical exam (Primary Care) Vital Signs: Last Vital Signs Pulse 76 05/01/24 11:10 BP 148/70 H 05/01/24 11:10 Pulse Ox 98 05/01/24 11:10 Oxygen Delivery Method Room Air 05/01/24 11:10 BMI result Body Mass Index 25.2 Tobacco/Smoking Status: Tobacco use Status Tobacco use date assessed 11/10/23 05/01/24 11:12 Patient Tobacco Use Status Never used Tobacco 05/01/24 11:12 e-Cigarette/Vaping Use Never Used 05/01/24 11:12 Thrive Assessment: Date of Thrive Assessment Date Thrive assessed 11/10/23 05/01/24 11:12 Const General: healthy appearing, no acute distress, alert and awake Nutritional Appearance: well nourished Orientation/consciousness: oriented to person, oriented to place and oriented to time HENMT Ears: TM's normal bilaterally General nose exam: Normal nasal mucous membranes and turbinates present Eyes Conjunctivae: conjunctivae normal Sclerae: sclerae normal Pupils: Equal, round and reactive pupils present Neck Neck: Yes no lymphadenopathy and Yes no JVD Thyroid: Thyroid normal Carotids: no bruits Resp Effort & Inspection: normal respiratory effort and not tachypneic Auscultation: no crackles, no rales, no rhonchi and no wheezes Cardio Rate: regular rate Rhythm: regular rhythm Heart sounds: no murmurs and normal S1 and S2 GI Palpation (GI): Soft to palpation, nontender, no hepatomegaly and no splenomegaly Auscultation: normal bowel sounds Skin General skin exam: no rashes or lesions noted and dry skin Neuro General: oriented to person, oriented to place and oriented to time Cranial nerves: Yes Equal, round and reactive pupils present Speech: No Abnormal speech present Gait exam (Neuro): Normal gait present Motor exam (neuro): no tremor noted Extrem Right upper extremity: full ROM Left upper extremity: full ROM Right lower extremity: full ROM; no edema Left lower extremity: full ROM; no edema Psych Mental Status: mental status grossly normal Speech and movement: Normal speech and movement present Affect: normal affect Attitude: cooperative Thought process: Normal thought process present Immunizations pneumoc 20-melva conj-dip cr(PF) 0.5 mL IM syringe Performing Provider: Santos Chicas PA-C [facility] [facility] [place] [facility] Administered by: TUCKER Samuels on 05/01/24 11:41 Dose Route Admin Location Dispensed Lot Number Expiration Date NDC Informatics Coordinator 0.5 mL IM Left Deltoid 0.5 mL [id number] 07/22/25 [id number] [employer] VIS Given Date VIS Provided VIS Publication Date 05/01/24 Single Vaccine 21 Eligibility Eligibility Date Funding Source Not [facility] Eligible 05/01/24 Private Coding Level of Care Code Est Pt Level 4 (73978) Diagnoses Essential (primary) hypertension I10 KELSEY (generalized anxiety disorder) F41.1 Mixed hyperlipidemia E78.2 Hyperlipidemia type: mixed hyperlipidemia Non-seasonal allergic rhinitis due to other allergic trigger J30.89 Allergic rhinitis trigger: other Allergic rhinitis seasonality: non-seasonal Assessment & Plan Assessment & Plan (1) Essential (primary) hypertension: Code(s): I10 - Essential (primary) hypertension Category: Medical Plan: Patient's blood pressure slightly elevated today in office. She continues on amlodipine and Aldactone. 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 She reports home blood pressure readings are 110-120 systolic. She otherwise denies any headache, vision issues or dizziness. She likely has a white coat hypertension. Goal blood pressures to remain below 140/90 at home. (2) KELSEY (generalized anxiety disorder): Code(s): F41.1 - Generalized anxiety disorder Category: Medical Plan: Patient reports her anxiety has been well controlled. Only having to use lorazepam on a very limited p.r.n. basis. (3) HLD (hyperlipidemia): Code(s): E78.5 - Hyperlipidemia, unspecified Category: Medical Qualifiers: Hyperlipidemia type: mixed hyperlipidemia Qualified Code(s): E78.2 - Mixed hyperlipidemia Plan: Patient's most recent fasting lipid panel showing fairly good control over total cholesterol and LDL. She continues with simvastatin 20 mg. Goal LDL is to remain below 130 (4) Allergic rhinitis: Code(s): J30.9 - Allergic rhinitis, unspecified Category: Medical Qualifiers: Allergic rhinitis trigger: other Allergic rhinitis seasonality: non-seasonal Qualified Code(s): J30.89 - Other allergic rhinitis Plan: Patient does seem to have environmental allergies likely allergic to her dog to which he agrees. She does have chronic sinus and postnasal drip. She is willing to try montelukast as an alternative allergy medication. Will consider ENT evaluation for possible allergy injections. Orders: Orders Pneumococcal 20 Immunization Today J30.89 - Other allergic rhinitis, Z23 - Encounter for immunization Comprehensive [place]. Panel Fast Today I10 - Essential (primary) hypertension Complete Blood Count no Diff Today I10 - Essential (primary) hypertension Lipid Panel Today E78.2 - Mixed hyperlipidemia Microalbumin, Random (w Creat) Today I10 - Essential (primary) hypertension Medications: New montelukast (Singulair) 10 mg PO DAILY 90 days 90 tabs 1RF J30.89 - Other allergic rhinitis prednisone 20 mg PO DAILY 4 days 4 tabs 0RF J30.89 - Other allergic rhinitis Refilled albuterol sulfate 90 mcg/actuation 2 puffs inhalation Q6H 30 days PRN 8.5 grams 1RF shortness of breath or wheezing R06.02 - Shortness of breath simvastatin 20 mg PO BEDTIME 90 tabs 2RF lorazepam 0.5 mg PO DAILY 7 days PRN 7 tabs 0RF anxiety F41.1 - Generalized anxiety disorder
== END 2024-05-01 11:40 | disposition home or self-care (01) ==
PROVIDERS: PCP Physician Assistant; Visit Provider Physician Assistant
DX: I10 Essential (primary) hypertension (principal); F41.1 Generalized anxiety disorder; E78.2 Mixed hyperlipidemia; J30.89 Other allergic rhinitis; Z23 Encounter for immunization

== ENCOUNTER → 2024-05-01 10:44 | Outpatient (BNVA) | payer MEDICARE, SELFPAY | PROVIDERS: PCP Physician Assistant; Visit Provider Physician Assistant | DX: Z23 Encounter for immunization (principal); I10 Essential (primary) hypertension; F41.1 Generalized anxiety disorder; E78.2 Mixed hyperlipidemia; J30.89 Other allergic rhinitis | CPT/HCPCS: 90471; 90677; 99212 ==

== ENCOUNTER 2024-07-12 12:46 | Outpatient (REF) | payer MEDICARE, SELFPAY ==
--- OUTSIDE RECORDS SUMMARY | 2024-07-12 13:01 | XMS_ITS | Clinical Summary ---
Author Organization [facility] Facility Address [address] [place] [id number] Care Team Providers Care Christmas Tree Farm Worker Name Role Phone Santos Chicas Primary Care Provider [phone] Allergies No known active allergies Medications albuterol HFA (PROVENTIL HFA;VENTOLIN HFA) 108 (90 Base) MCG/ACT inhaler Inhale 2 puffs every 6 (six) hours if needed for wheezing Active Cholecalciferol (Vitamin D) 50 MCG (2000 UT) capsule Take by mouth Active losartan (COZAAR) 25 MG tablet Take 25 mg by mouth 1 (one) time each day Active Multiple Vitamins-Minera ls (multivitamin with minerals) tablet Take 1 tablet by mouth 1 (one) time each day Active simvastatin (ZOCOR) 20 MG tablet Take 20 mg by mouth every night Active Social History Tobacco Use Types Packs/Day Years Used Date Smoking Tobacco: Never Smokeless Tobacco: Never Tobacco Cessation:Counseling Given: Not Answered Alcohol Use Standard Drinks/Week Comments Yes 0 (1 standard drink = 0.6 oz pur e alcohol) Comments Unknown Sex and Gender Information Value Date Recorded Sex Assigned at Not on file Legal Sex Female 9:35 AM EST Gender Identity Not on file Sexual Orientation Not on file Last Filed Vital Signs Vital Sign Reading Time Taken Comments Blood Pressure 120/65 12/21/2022 3:54 PM EDT Pulse 74 12/21/2022 3:54 PM EDT Temperature - - Respiratory Rate - - Oxygen Saturation 97% 12/21/2022 3:54 PM EDT Inhaled Oxygen Concentration - - Weight 59.9 kg (132 lb) 12/21/2022 3:54 PM EDT Height - - Body Mass Index - - Plan of Treatment Health Maintenance Due Date Last Done Comments Pneumococcal Vaccine: 65+ Ye ars (1 of 2 - PCV) 1951 Influenza Vaccine (#1) 2024 Hepatitis B Vaccine Aged Out No longe r eligible based on patient's age to complete this topic Insurance MEDICARE [facility] MEDICARE [facility] Care Teams Christmas Tree Farm Worker Relationship Specialty Start Date End Date Santos Chicas PA [address] [place] [address], [address] [place] [address] PCP - General Physician Iron Molder Helper 03/30/22
[2024-07-12 16:39] LABS: Appearance Urine Clear; Color Urine Yellow; Glucose Urine UA Negative (Negative); Leukocyte Esterase Urine Negative (Negative); Nitrite Urine Negative (Negative); PH 5.5 (5.0-9.0); Specific Gravity - Urine 1.015 (1.005-1.025); UMIC TRIGGER UA YES; Urine Blood Moderate (2+) (Negative); Urine Ketones Negative (Negative); Urine Protein 300 (3+) mg/dL (Neg-Trace)
[2024-07-12 18:05] LABS: Bacteria Urine None Seen (None Seen); Hyaline Casts Urine 0-2 /LPF (0-2); RBC Urine 0-2 /HPF (0-2); Squamous Epithelial Cell Urine 0-2 /HPF (0-2); WBC Urine 0-5 /HPF (0-5)
== END 2024-07-12 12:47 | disposition home or self-care (01) ==
LOC: HO.HMGCLDS 12:46
PROVIDERS: Internal Medicine Hypertension Specialist; PCP Physician Assistant; Visit Provider Student in an Organized Health Care Education/Training Program
DX: I10 Essential (primary) hypertension (principal); N39.0 Urinary tract infection, site not specified
CPT/HCPCS: 81001; 81003

== ENCOUNTER 2024-07-17 11:02 | Outpatient (AMB) | payer MEDICARE, SELFPAY ==
--- NOTE | 2024-07-17 11:05 | HO.NEPHOV_ITS ---
Vital Signs 07/17/24 11:06 Height 5 ft 1 in Weight 134 lb BMI 25.3 BP 150/70 H Blood Pressure Location Lt brachial Position Sitting Intake Visit Reasons: 4 Month F/U/ [place] Jailer Required: No Accompanied by: Self / Same As Patient Allergies hydroxyzine Adverse Reaction (Mild, Verified 07/17/24 11:06) Palpitations losartan Adverse Reaction (Mild, Uncoded 05/01/24 11:15) Cough Medication List - Last Reconciled 07/17/24 by Pedro Denise MD acetaminophen (Tylenol Extra Strength) 500 mg PO Q6H PRN albuterol sulfate 90 mcg/actuation 2 puffs inhalation Q6H PRN 30 days amlodipine 2.5 mg PO DAILY ergocalciferol (vitamin D2) 50 mcg PO DAILY lorazepam 0.5 mg PO DAILY PRN 7 days mecobalamin (vitamin B12) 1,000 mcg PO DAILY montelukast (Singulair) 10 mg PO DAILY 90 days multivitamin 1 tab PO DAILY omega 0-aom-akz-fish oil 1,000 (120-180) mg (Fish Oil) 1 cap PO DAILY prednisone 20 mg PO DAILY 4 days simvastatin 20 mg PO BEDTIME spironolactone 25 mg PO DAILY HPI Comments Details: Elderly woman with HTN , referred fot HTN and Proteinuria She was on Lisinopril - Discontinued due to cought Losartan aslo caused cough Now on Amlodipine 2.5 mg QD Has mild edema Amlodipine increased to 5 mg - she is yet to mushroom picker prescription h/o recurrent UTI Has 300+ protein by dipstick ; In feb 2023, Urine Pro: cr was 0.78 11/30/2023. Few days ago she had a wasp sting. No shortness of breath 03/16/24 HAd dysuria; Culture was done and positive for E Coli ;Today she is asymptomatic ! 07/17/24 : Nonew issues. [facility] Medical History Protein in urine COVID-19 Post-menopausal Screening for hypothyroidism Surgical History History of cataract surgery Family History Father No problems noted. Mother No problems noted. Son In good health Son In good health Son In good health Social History Housing: House Alcohol intake: current Alcohol intake frequency: holidays/special occasions only Alcohol type: wine Patient Tobacco Use Status: Never used Tobacco e-Cigarette/Vaping Use: Never Used Second Hand Smoke Exposure: No service: No Current occupational status: retired Cognitive needs: No Hearing needs: No Vision needs: Yes (reading glasses) Physical Exam Vital Signs: Last Vital Signs BP 150/70 H 07/17/24 11:06 BMI result Body Mass Index 25.3 Const General: comfortable; No acute distress Orientation/consciousness: patient oriented x3 Eyes General: appearance normal, both eyes and all related structures Visual Roque: normal visual roque by confrontation Neck Neck: Yes supple and Yes no JVD Resp Effort & Inspection: normal respiratory effort and respiratory effort not decreased Auscultation: rhonchi Cardio Palpation: no palpable S3 and no palpable S4 Heart sounds: no rubs GI Inspection: Yes normal to inspection Palpation (GI): Soft to palpation Percussion: Yes normal to percussion Auscultation: normal bowel sounds General: Yes no CVA tenderness Back/Spine/Pelvis Back: no CVA tenderness Skin General skin exam: no petechiae and no purpura Neuro General: patient oriented x3 and no focal motor deficits Extrem General: No clubbing and No edema Results Reviewed Nephrology Results: Hgb 12.1 g/dl (12.0-16.0) 04/25/24 WBC 6.3 X10*3/uL (4.8-10.8) 04/25/24 Plt Count 239 X10*3/uL (160-400) 04/25/24 Sodium 140 mmol/L (135-145) 04/25/24 Potassium 3.9 mmol/L (3.3-5.1) 04/25/24 Chloride 107 mmol/L (96-108) 04/25/24 Carbon Dioxide 27 mmol/L (22-29) 04/25/24 BUN 17 mg/dL (9-16) H 04/25/24 Creatinine 0.81 mg/dL (0.5-1.4) 04/25/24 Calcium 9.1 mg/dL (8.4-10.2) 04/25/24 Urine Protein 300 (3+) mg/dL (Neg-Trace) H 07/12/24 Urine Creatinine 74.34 mg/dL 03/16/24 Assessment & Plan Assessment & Plan (1) Essential (primary) hypertension: Code(s): I10 - Essential (primary) hypertension Category: Medical (2) Recurrent UTI: Code(s): N39.0 - Urinary tract infection, site not specified Category: Medical (3) Protein in urine: Code(s): R80.9 - Proteinuria, unspecified Category: Medical Qualifiers: Proteinuria type: unspecified Qualified Code(s): R80.9 - Proteinuria, unspecified (4) Proteinuria: Code(s): R80.9 - Proteinuria, unspecified Category: Medical Plan Elderly woman with HTN and non nephrotic range proteinuria and normal renal function Unable to tolerate ACEi and ARB due to cough Still has protienuria - about 4 gm with microhematuria Serologies were all normal Repeat urine protein creatinine ratio ordered Overall renal function is stable Keep Amlodipine at 2.5 mg QD ; 5mg might cause more edema INCREASE Spironolactone 25 mg QD to block ZOIE and optimize BP Orders: Orders Basic Metabolic Panel 6 Months N39.0 - Urinary tract infection, site not specified, R80.9 - Proteinuria, unspecified Total Protein Urine Random 6 Months N39.0 - Urinary tract infection, site not specified, R80.9 - Proteinuria, unspecified UA and rflx microscopic 6 Months N39.0 - Urinary tract infection, site not specified, R80.9 - Proteinuria, unspecified Creatinine Urine 6 Months N39.0 - Urinary tract infection, site not specified, R80.9 - Proteinuria, unspecified Urine Culture 6 Months N39.0 - Urinary tract infection, site not specified, R80.9 - Proteinuria, unspecified Medications: Refilled spironolactone 25 mg PO DAILY 90 tabs 1RF Coding Level of Care Code Est Pt Level 4 (56911) Diagnoses Essential (primary) hypertension I10 Recurrent UTI N39.0 Proteinuria, unspecified type R80.9 Proteinuria type: unspecified
[2024-07-17 11:06] VITALS: BP 150/70; BMI 25.3
--- OUTSIDE RECORDS SUMMARY | 2024-07-17 12:41 | XMS_ITS | Clinical Summary ---
Author Organization [facility] Facility Address [address] [place] [id number] Care Team Providers Care Atomic Physics Professor Name Role Phone Santos hCicas Primary Care Provider [phone] Allergies No known active allergies Medications albuterol [...] age to complete this topic Insurance MEDICARE [facility] MEDICARE [facility] Care Teams Atomic Physics Professor Relationship Specialty Start Date End Date Santos Chicas PA [address] [place] [address], [address] [place] [address] PCP - General Physician Benefits Consultant 03/30/22
== END 2024-07-17 11:20 | disposition home or self-care (01) ==
PROVIDERS: PCP Physician Assistant; Visit Provider Internal Medicine Hypertension Specialist
DX: I10 Essential (primary) hypertension (principal); N39.0 Urinary tract infection, site not specified; R80.9 Proteinuria, unspecified
CPT/HCPCS: 99214

== ENCOUNTER → 2024-07-17 11:02 | Outpatient (BNVA) | payer MEDICARE, SELFPAY | PROVIDERS: PCP Physician Assistant; Visit Provider Internal Medicine Hypertension Specialist | DX: I10 Essential (primary) hypertension (principal); N39.0 Urinary tract infection, site not specified; R80.9 Proteinuria, unspecified | CPT/HCPCS: 99212 ==

== ENCOUNTER 2024-09-28 13:59 | Outpatient (AMB) | payer MEDICARE, SELFPAY ==
--- NOTE | 2024-09-28 14:32 | AM.OFFWIN_ITS ---
Intake Vital Signs 09/28/24 14:34 Weight 131 lb 8 oz BP 126/70 Blood Pressure Location Rt brachial Position Sitting Pulse 81 Pulse Source Pulse Oximeter Temp 98.2 F Temp Source Oral Pulse Oximetry (%) 97 Oxygen Delivery Method Room Air Intake Visit Reasons: EP- sinus, head congestion, allergies, asthma Intake Note: Patient here for sinus pressure, head congestion and cough that has been present for about 1 week. Patient Tobacco Use Status: Never used Tobacco Allergies hydroxyzine Adverse Reaction (Mild, Verified 09/28/24 14:49) Palpitations losartan Adverse Reaction (Mild, Uncoded 09/28/24 14:36) Cough Medication List - Last Reconciled 09/28/24 by FLO Newsome- acetaminophen (Tylenol Extra Strength) 500 mg PO Q6H PRN albuterol sulfate 90 mcg/actuation 2 puffs inhalation Q6H PRN 30 days amlodipine 2.5 mg PO DAILY ergocalciferol (vitamin D2) 50 mcg PO DAILY lorazepam 0.5 mg PO DAILY PRN 7 days mecobalamin (vitamin B12) 1,000 mcg PO DAILY montelukast (Singulair) 10 mg PO DAILY 90 days multivitamin 1 tab PO DAILY omega 5-alf-jcg-fish oil 1,000 (120-180) mg (Fish Oil) 1 cap PO DAILY simvastatin 20 mg PO BEDTIME spironolactone 25 mg PO DAILY Do you need a note to return to daycare/school/sports/work: No HPI HPI Comments History of Present Illness Details History - The patient is a 79-year-old female pr esenting with worsening respiratory symptoms and a suspected sinus infection. - The patient has asthma, which has been aggravated over the past week. - Nasal congestion with sinus pressure n oted since the day before yesterday, without associated fever or chills. - The patient's allergies have been exac erbated over the past few weeks, aggravated by environmental factors, including a pet. - Current medications include albuterol, guaifenesin, Flonase, and a recently initiated Singulair regimen. - Previously managed with Zyrtec, per pr ior physician guidance. - Vaccinations are current, including in fluenza vaccination. Physical Exam General: Awake, alert. No apparent distress Eyes: Sclera and conjunctiva clear bilaterally Nose: Nares yellow drainage, turbinates pale and edematous, sinus pressure noted bilat max sinuses Ears: Tympanic membranes intact and clear bilaterally Throat: Moist mucosa membrane, pharynx within normal limits Cardiovascular: Regular rate and rhythm Respiratory: Clear to auscultation bilaterally, slight wheezing noted throughout w/o distress Discussion Notes I discussed with the patient the likely diagnosis of sinusitis exacerbated by allergic rhinitis. We reviewed treatment options, choosing to prescribe Augmentin for sinus infection and prednisone to address asthma exacerbation. I emphasized completing the antibiotic course to minimize the risk of antibiotic resistance and improve symptom resolution. We reviewed the importance of taking these medications with food to avoid gastrointestinal upset. Further, the patient and I discussed her asthma management regimen, including the recent switch to Singulair and adjustments to her allergy medications. We agreed on the importance of maintaining the current regimen and monitoring her symptoms. I advised a return to care if symptoms worsen or fail to improve. The patient c onsented to the proposed plan without reservations. Assessment and Plan 1. Asthma A short course of prednisone was initiated for asthma exacerbation, and the continuation of albuterol, alongside Singulair, was discussed to manage symptoms effectively. 2. Sinusitis Augmentin was prescribed to address bacterial sinusitis, ensuring completion to prevent resistance. 3. Allergic Rhinitis Continued use of Flonase and Singulair for allergen management was endorsed. Environmental control measures were advised. Patient Instructions - Take prednisone once daily and Augment in twice daily with food. - Continue using albuterol and Singulair as directed. - Monitor symptoms and seek medical care if symptoms worsen or do not improve. - Follow environmental measures to reduc e allergen exposure, particularly with pet dander. Consent Patient was informed and verbally consented to the use of an ambient scribe for clinic note documentation during this visit. [facility] Medical History Protein in urine COVID-19 Post-menopausal Screening for hypothyroidism Surgical History History of cataract surgery Family History Father No problems noted. Mother No problems noted. Son In good health Son In good health Son In good health Social History Housing: House Alcohol intake: current Alcohol intake frequency: holidays/special occasions only Alcohol type: wine Patient Tobacco Use Status: Never used Tobacco e-Cigarette/Vaping Use: Never Used Second Hand Smoke Exposure: No service: No Current occupational status: retired Cognitive needs: No Hearing needs: No Vision needs: Yes (reading glasses) Physical Exam Vital Signs: Last Vital Signs Temp 98.2 F 09/28/24 14:34 Pulse 81 09/28/24 14:34 BP 126/70 09/28/24 14:34 Pulse Ox 97 09/28/24 14:34 Oxygen Delivery Method Room Air 09/28/24 14:34 Assessment & Plan Assessment & Plan (1) Acute sinusitis: Code(s): J01.90 - Acute sinusitis, unspecified Qualifiers: Sinusitis location: maxillary Recurrence: non-recurrent Qualified Code(s): J01.00 - Acute maxillary sinusitis, unspecified (2) Asthma: Code(s): J45.909 - Unspecified asthma, uncomplicated Qualifiers: Asthma severity: mild Asthma persistence: intermittent Asthma complication type: with acute exacerbation Qualified Code(s): J45.21 - Mild intermittent asthma with (acute) exacerbation (3) Allergic rhinitis: Code(s): J30.9 - Allergic rhinitis, unspecified Qualifiers: Allergic rhinitis trigger: other Allergic rhinitis seasonality: non- seasonal Qualified Code(s): J30.89 - Other allergic rhinitis Plan: . Plan . Medications: New prednisone 20 mg PO DAILY 5 tabs 0RF amoxicillin-pot clavulanate 500-125 mg (Augmentin) 1 tab PO BID 10 tabs 0RF Coding Level of Care Code Est Pt Level 3 (21182) Diagnoses Acute non-recurrent maxillary sinusitis J01.00 Sinusitis location: maxillary Recurrence: non-recurrent Mild intermittent asthma with acute exacerbation J45.21 Asthma severity: mild Asthma persistence: intermittent Asthma complication type: with acute exacerbation Non-seasonal allergic rhinitis due to other allergic trigger J30.89 Allergic rhinitis trigger: other Allergic rhinitis seasonality: non-seasonal
[2024-09-28 14:34] VITALS: BP 126/70; PULSE 81; TEMP 36.8; O2SAT 97
--- OUTSIDE RECORDS SUMMARY | 2024-09-28 14:54 | XMS_ITS | Clinical Summary ---
Author Organization [facility] Facility Address [address] [place] [address] Care Team Providers Care Polarity Tester Name Role Phone Santos Chicas Primary Care Provider [phone] Allergies No known active allergies Medications albuterol [...] Due Date Last Done Comments Pneumococcal Vaccine: 50+ Ye ars (1 of 2 - PCV) 1964 Influenza Vaccine (Season Ended) 2025 Hepatitis B Vaccine Aged Out No longe r eligible based on patient's age to complete this topic Insurance Medicare [facility] Medicare [facility] Care Teams Polarity Tester Relationship Specialty Start Date End Date Santos Chicas PA [address] [place] [address], [address] [place] [address] PCP - General Physician Airfield Manager 03/30/22
== END 2024-09-28 15:13 | disposition home or self-care (01) ==
PROVIDERS: PCP Physician Assistant; Visit Provider Nurse Practitioner Family
DX: J01.00 Acute maxillary sinusitis, unspecified (principal); J45.21 Mild intermittent asthma with (acute) exacerbation; J30.89 Other allergic rhinitis

== ENCOUNTER → 2024-09-28 13:59 | Outpatient (BNVA) | payer MEDICARE, SELFPAY | PROVIDERS: PCP Physician Assistant; Visit Provider Nurse Practitioner Family | DX: J01.00 Acute maxillary sinusitis, unspecified (principal); J45.21 Mild intermittent asthma with (acute) exacerbation; J30.89 Other allergic rhinitis | CPT/HCPCS: 99212 ==

== ENCOUNTER 2024-10-27 09:45 | Outpatient (REF) | payer MEDICARE, SELFPAY ==
--- OUTSIDE RECORDS SUMMARY | 2024-10-27 10:22 | XMS_ITS | Clinical Summary ---
Author Organization [facility] Facility Address [address] [place] [address] Care Team Providers Care Skiver Operator Name Role Phone Santos Chicas Primary Care Provider [phone] Allergies No known active allergies Medications albuterol [...] age to complete this topic Insurance Medicare [facility] Medicare [facility] Care Teams Skiver Operator Relationship Specialty Start Date End Date Santos Chicas PA [address] [place] [address], [address] [place] [address] PCP - General Physician Trade Recruiter 03/30/22
[2024-10-27 13:23] LABS: Appearance Urine Clear; Color Urine Yellow; Glucose Urine UA Negative (Negative); Leukocyte Esterase Urine Negative (Negative); Nitrite Urine Negative (Negative); UMIC TRIGGER UACC YES; Urine Blood Small (1+) (Negative); Urine Ketones Negative (Negative); Urine Protein 300 (3+) mg/dL (Neg-Trace)
[2024-10-27 13:33] LABS: Hematocrit 36.5 % (37.0-47.0); Mean Corpuscular HGB Conc 32.9 g/dl (31.0-35.0); Mean Corpuscular Hemoglobin 30.8 pg (27.0-33.0); Mean Corpuscular Volume 93.6 fL (80.0-98.0); Mean Platelet Volume 9.3 fL (9.4-12.3); Platelet Count 274 X10*3/uL (160-400); Red Cell Distribution Width 12.5 % (11.0-16.0); White Blood Count 6.5 X10*3/uL (4.8-10.8)
[2024-10-27 13:41] LABS: Bacteria Urine None Seen (None Seen); Hyaline Casts Urine 0-2 /LPF (0-2); RBC Urine 0-2 /HPF (0-2); Squamous Epithelial Cell Urine 0-2 /HPF (0-2); WBC Urine 0-5 /HPF (0-5)
[2024-10-27 14:14] LABS: Creatinine Urine 60.35 mg/dL
[2024-10-27 14:19] LABS: Microalbumin Urine > 2000.0 mg/L
[2024-10-27 14:57] LABS: Alanine Aminotransferase 25 U/L (0-31); Albumin Level 3.7 g/dL (3.5-5.0); Alkaline Phosphatase 65 U/L (39-117); Anion Gap 11 (12-20); Aspartate Amino Transferase 34 U/L (5-31); Bilirubin Total 0.3 mg/dL (0.0-1.0); Blood Urea Nitrogen 22 mg/dL (9-16); Calcium 9.8 mg/dL (8.4-10.2); Carbon Dioxide 29 mmol/L (22-29); Chloride 106 mmol/L (96-108); Cholesterol 189 mg/dL (<200); Estimated Glomerular Filt Rate > 60; Glucose Fasting 86 mg/dL (60-99); HDL Cholesterol 75 mg/dL (>40); LDL Cholesterol Calculated 97 mg/dL (<100); Potassium 4.1 mmol/L (3.3-5.1); Sodium 142 mmol/L (135-145); Total Protein 6.8 g/dL (6.5-8.0); Triglycerides 89 mg/dL (<150)
== END 2024-10-27 09:46 | disposition home or self-care (01) ==
LOC: HO.HMGCLDS 09:45
PROVIDERS: PCP Physician Assistant; Visit Provider Physician Assistant
DX: E78.2 Mixed hyperlipidemia (principal); I10 Essential (primary) hypertension
CPT/HCPCS: 36415; 80053; 80061; 81001; 82043; 82570; 85027

== ENCOUNTER 2024-10-31 10:31 | Outpatient (AMB) | payer MEDICARE, SELFPAY ==
[2024-10-31 10:52] VITALS: BP 152/76; PULSE 74; RESP 16; TEMP 36.2; O2SAT 97; BMI 25.1
--- NOTE | 2024-10-31 10:52 | A.OFFPC_ITS ---
Vital Signs 10/31/24 10:52 Height 5 ft 1 in Weight 132 lb 9.6 oz BMI 25.1 BP 152/76 H Blood Pressure Location Lt brachial Position Sitting Respiration 16 Pulse 74 Pulse Source Pulse Oximeter Temp 97.1 F Temp Source Temporal Artery Scan Pulse Oximetry (%) 97 Oxygen Delivery Method Room Air Intake Visit Reasons: Annual Exam Brick Pitcher Required: No Accompanied by: Self / Same As Patient Allergies hydroxyzine Adverse Reaction (Mild, Verified 10/31/24 11:18) Palpitations losartan Adverse Reaction (Mild, Uncoded 10/31/24 11:18) Cough Medication List - Last Reconciled 10/31/24 by Santos Chicas PA-C acetaminophen (Tylenol Extra Strength) 500 mg PO Q6H PRN albuterol sulfate 90 mcg/actuation 2 puffs inhalation Q6H PRN 30 days amlodipine 2.5 mg PO DAILY ergocalciferol (vitamin D2) 50 mcg PO DAILY lorazepam 0.5 mg PO DAILY PRN 7 days mecobalamin (vitamin B12) 1,000 mcg PO DAILY montelukast (Singulair) 10 mg PO DAILY 90 days multivitamin 1 tab PO DAILY omega 1-urp-qmq-fish oil 1,000 (120-180) mg (Fish Oil) 1 cap PO DAILY simvastatin 20 mg PO BEDTIME spironolactone 25 mg PO DAILY Tobacco use date assessed: 10/31/24 Fall risk assessment: No Falls in past year Last assessed Fall Risk: 10/31/24 Dental Screening Dental Screen Date: 10/31/24 Did you have a dental visit in the last 12 months?: Yes Did you have a dental problem in the last 6 months where you did not have access to dental care?: No Was dental information given to patient?: Patient has dentist HPI Annual Exam HPI Details Patient is a 79-year-old female here today for an annual physical? Patient has a past medical history significant for hyperlipidemia, essential hypertension. . Generalized anxiety disorder: She reports her anxiety has been well controlled. She only seldomly has to use lorazepam. . Hypertension:? She reports home blood pressures have been 120s to 130 systolic. Today blood pressure elevated the office. ? White coat hypertension. Has not had any chest discomfort or headaches.? Have noted elevated microalbuminuria and has had 2+ to 3+ protein in urine for many years now. Most recent microalbumin showing 2000+, she attributes this to her asthma and allergies. She otherwise is asymptomatic without any dizziness, swelling etcetera. She has followed up with professional healthcare representative . Has had renal ultrasound did not show any renal cysts. Has had significant workup thus for for secondary causes of proteinuria though has been negative. Has been making med adjustment with professional healthcare representative. Now on CCB and aldactone and blood pressure have been stable at home. .. Hyperlipidemia:? Patient continues on statin therapy without any side effect.? Most recent lipid panel showing improved total cholesterol and LDL. She has been watching in modifying her diet.. Vaccines: Up-to-date with flu vaccine, pneumonia vaccine, tetanus vaccine, considering shingles vaccine Mammogram: declines mammo Colorectal cancer screening: willing to do cologaurd [facility] Medical History Protein in urine COVID-19 Post-menopausal Screening for hypothyroidism Surgical History History of cataract surgery Family History Father No problems noted. Mother No problems noted. Son In good health Son In good health Son In good health Social History Housing: House Alcohol intake: current Alcohol intake frequency: holidays/special occasions only Alcohol type: wine Patient Tobacco Use Status: Never used Tobacco e-Cigarette/Vaping Use: Never Used Second Hand Smoke Exposure: No service: No Current occupational status: retired Cognitive needs: No Hearing needs: No Vision needs: Yes (reading glasses) Questionnaire PHQ-9 Over the last 2 weeks, how often have you been bothered by any of the following problems? 1. Little interest or pleasure in doing things: not at all 2. Feeling down, depressed, or hopeless: not at all 3. Trouble falling or staying asleep, or sleeping too much: not at all 4. Feeling tired or having little energy: not at all 5. Poor appetite or overeating: not at all 6. Feeling bad about yourself - or that you are a failure or have let yourself or your family down: not at all 7. Trouble concentrating on things, such as reading the newspaper or watching television: not at all 8. Moving or speaking so slowly that other people could have noticed. Or the opposite - being so fidgety or restless that you have been moving around a lot more than usual: not at all 9. Thoughts that you would be better off or of hurting yourself in some way: not at all Total score: 0 Depression Screening Interpretation: Negative Depression Screening Done: Yes 44919 - PHQ-9 Billing: Yes Source: Developed by Drs. Gustavo Dickey, Kami Gavin, Deandre Francis and colleagues, with an educational soham from [facility]. Thrive Questionnaire Date Thrive assessed: 10/31/24 I am a: Patient What is your living situation today?: I have a steady place to live Within the past 12 months, did the food you bought not last and you didn't have the money to get more?: Never true Within the past 12 months, did you worry whether your food would run out before you got money to buy more?: Never true Do you have trouble paying for medicines?: No Do you have trouble getting transportation to medical appointments?: No Do you have trouble paying your heating and electricity bill?: No Do you have trouble taking care of your child, family member or friend?: No Do you have trouble with day-to-day activities such as bathing, preparing meals, shopping, managing finances, etc.?: No Are you currently unemployed and looking for a job?: No Are you interested in more education?: No Please select the resources that you would like help with: None Currently or been in a relationship where the following occur: No concerns reported THRIVE Score: 0 AUDIT C Alcohol Use Questionnaire (AUDIT-C) 1. How often do you have a drink containing alcohol?: Never Total Score: 0 Score Reviewed/Action Taken: No KELSEY-7 AMB Questionnaire KELSEY-7 Date KELSEY - 7 assessed: 10/31/24 Feeling nervous, anxious, or on edge: 0 = Not at all Not being able to stop or control worryin = Not at all Worrying too much about different things: 0 = Not at all Trouble relaxin = Not at all Being so restless that it is hard to sit still: 0 = Not at all Becoming easily annoyed or irritable: 0 = Not at all Feeling afraid as if something awful might happen: 0 = Not at all Total KELSEY-7 score (0-4 normal; 5-9 mild; 10-14 moderate; 15-21 severe): 0 Source: Developed by Drs. Gustavo Dickey, Kami Gavin, Deandre Francis and colleagues, with an educational soham from [facility]. KELSEY-7 Assessment Billing KELSEY-7 Assessment Tool: KELSEY-7 Assessment 82316 Review of Systems Const Denies body aches, Denies chills, Denies excessive sweating, Denies fatigue, Denies fever(s) and Denies headache(s) Eyes Denies blurry vision ENT Denies dysphagia, Denies vertigo, Denies dizziness, Denies headache(s), Denies hearing loss and Denies tinnitus Card Denies chest pain, Denies chest pain with activity, Denies syncope, Denies irregular heart rhythm and Denies dyspnea Resp Denies chest congestion, Denies cough, Denies hemoptysis, Denies dyspnea and Denies wheezing GI Denies abdominal pain, Denies melena, Denies hematochezia, Denies coffee ground emesis, Denies dysphagia, Denies diarrhea, Denies nausea and Denies vomiting Denies urinary frequency, Denies dysuria, Denies urinary hesitancy and Denies urinary urgency Musc Denies arthralgias, Denies limited range of motion, Denies muscle cramps and Denies muscle weakness Skin/Breast Denies rash and Denies skin ulcer Neuro Denies Abnormal speech present, Denies confusion, Denies vertigo, Denies dizziness, Denies syncope, Denies headache(s), Denies memory loss and Denies seizure-like activity Psych Denies anxiety, Denies confusion, Denies depression, Denies memory loss, Denies panic attacks and Denies paranoia Endo Denies excessive sweating, Denies fatigue, Denies flushing, Denies polydipsia and Denies polyuria Aller/Immun Denies wheezing Physical exam (Primary Care) Vital Signs: Last Vital Signs Temp 97.1 F 10/31/24 10:52 Pulse 74 10/31/24 10:52 Resp 16 10/31/24 10:52 BP 152/76 H 10/31/24 10:52 Pulse Ox 97 10/31/24 10:52 Oxygen Delivery Method Room Air 10/31/24 10:52 BMI result Body Mass Index 25.1 Tobacco/Smoking Status: Tobacco use Status Tobacco use date assessed 10/31/24 10/31/24 11:05 Patient Tobacco Use Status Never used Tobacco 10/31/24 11:05 e-Cigarette/Vaping Use Never Used 10/31/24 11:05 PHQ-9: PHQ-9 Score PHQ-9: Total score 0 10/31/24 11:19 Depression Screening Interpretation: Negative Thrive Assessment: Date of Thrive Assessment Date Thrive assessed 10/31/24 10/31/24 11:05 Currently or been in a relationship where the following occur: No concerns reported Const General: cooperative, comfortable, no acute distress, alert and awake; No confusion Orientation/consciousness: oriented to person, oriented to place, patient orie nted x3 and No confusion HENMT Head: Yes normocephalic Ears: external ears normal and TM's normal bilaterally Face and sinus: No sinus tenderness Mouth: Normal oral and palatal mucosa present and tongue normal Teeth and gingiva: dentition normal and gingiva normal Throat: Yes posterior oropharynx normal, Yes tonsils normal and Yes uvula midline Eyes Conjunctivae: conjunctivae normal Sclerae: sclerae normal Pupils: Equal, round and reactive pupils present EOM: EOMs intact bilaterally Direct Ophthalmoscopy: No no photophobia Neck Neck: Yes no lymphadenopathy, No tender and Yes no JVD Thyroid: Thyroid normal Carotids: no bruits Chest Chest palpation & inspection: no tenderness Resp Effort & Inspection: normal respiratory effort, no audible wheezes, not labored and no stridor Auscultation: no crackles, no rales, no rhonchi and no wheezes Cardio Jugular venous distension: no JVD Rate: regular rate, not bradycardic and not tachycardic Rhythm: regular rhythm Bruits: no carotid bruits Peripheral pulses: Peripheral pulses 2+ throughout GI Inspection: Yes normal to inspection, No abdominal wall ecchymosis and No visible herniation Palpation (GI): Soft to palpation, nontender, no guarding, not rigid and No hepatosplenomegaly present Auscultation: normoactive bowel sounds General: Yes no CVA tenderness Back/Spine/Pelvis Back: no CVA tenderness and No back tenderness Cervical Spine: cervical ROM normal Thoracic/Lumbar Spine: thoracic and lumbar spine normal to inspection, straight leg raise negative bilaterally, No thoraco-lumbar ROM limited and No lumbar spinal tenderness Skin Lesions: no lesions Rashes: no rashes Wounds: no wounds Neuro General: oriented to person, oriented to place, patient oriented x3, CN's II-XI intact bilaterally and No confusion Cranial nerves: Yes Equal, round and reactive pupils present and Yes Normal accommodation reflex present Cognition (Neuro): normal cognition Speech: No Abnormal speech present Gait exam (Neuro): Normal gait present Motor exam (neuro): 5/5 motor strength present throughout Extrem Right upper extremity: full ROM; no cyanosis Left upper extremity: full ROM; no cyanosis Right lower extremity: no edema Left lower extremity: no edema Psych Appearance: grossly normal Mental Status: mental status grossly normal Affect: normal affect Attitude: cooperative Thought process: Normal thought process present Coding Level of Care Code Est Pt Prev Care >65y(42042) Diagnoses Adult general medical exam Z00.00 Non-seasonal allergic rhinitis due to other allergic trigger Allergic rhinitis seasonality: non-seasonal Allergic rhinitis trigger: other KELSEY (generalized anxiety disorder) F41.1 Essential (primary) hypertension I10 Mixed hyperlipidemia E78.2 Hyperlipidemia type: mixed hyperlipidemia 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 Isolated proteinuria type: with unspecified morphologic lesion Proteinuria type: isolated Additional Codes KELSEY-7 Assessment Billing - KELSEY-7 Assessment Tool: KELSEY-7 Assessment 85493 ([id number]) PHQ-9 - 35001 - PHQ-9 Billing: Yes ([id number]) Assessment & Plan Assessment & Plan (1) Adult general medical exam: Code(s): Z00.00 - Encounter for general adult medical examination without abnormal findings Category: Medical Plan: As per HPI (2) Allergic rhinitis: Code(s): J30.9 - Allergic rhinitis, unspecified Category: Medical Qualifiers: Allergic rhinitis seasonality: non-seasonal Allergic rhinitis trigger: other Qualified Code(s): J30.89 - Other allergic rhinitis Plan: . Patient continues to have allergy rhinitis type symptoms, she reports she is very allergic to environmental allergies. She continues on montelukast and uses a nasal saline spray. She is open to to using ipratropium bromide to help (3) KELSEY (generalized anxiety disorder): Code(s): F41.1 - Generalized anxiety disorder Category: Medical Plan: Patient reports her anxiety has been well controlled. Only having to use loraz epam on a very limited p.r.n. basis. (4) Essential (primary) hypertension: Code(s): I10 - Essential (primary) hypertension Category: Medical Plan: Patient's blood pressure slightly elevated today in office. She continues on amlodipine and Aldactone. 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 She has recently been placed on spironolactone to help reduce protein urea She reports home blood pressure readings are 110-120 systolic. She otherwise denies any headache, vision issues or dizziness. She likely has a white coat hypertension. Goal blood pressures to remain below 140/90 at home. (5) HLD (hyperlipidemia): Code(s): E78.5 - Hyperlipidemia, unspecified Category: Medical Qualifiers: Hyperlipidemia type: mixed hyperlipidemia Qualified Code(s): E78.2 - Mixed hyperlipidemia Plan: Patient's most recent fasting lipid panel showing fairly good control over total cholesterol and LDL. She continues with simvastatin 20 mg. Goal LDL is to remain below 130 (6) Proteinuria: Code(s): R80.9 - Proteinuria, unspecified Category: Medical Qualifiers: Isolated proteinuria type: with unspecified morphologic lesion Proteinuria type: isolated Qualified Code(s): N06.9 - Isolated proteinuria with unspecified morphologic lesion Plan: As above. Will recheck microalbuminuria in the fall to see if Results change Plan . Orders: Orders Microalbumin, Random (w Creat) Today N06.9 - Isolated proteinuria with unspecified morphologic lesion Complete Blood Count no Diff Today I10 - Essential (primary) hypertension Resp Allergy Profile Region I Today J30.89 - Other allergic rhinitis, R05.9 - Cough, unspecified Comprehensive [place]. Panel Fast Today I10 - Essential (primary) hypertension Medications: New ipratropium bromide administer into each nostril 2 sprays intranasal BID 30 mL 1RF 30 days J30.89 - Other allergic rhinitis
--- OUTSIDE RECORDS SUMMARY | 2024-10-31 12:15 | XMS_ITS | Clinical Summary ---
Author Organization [facility] Facility Address [address] [place] [address] Care Team Providers Care Instructor Product Inspection Name Role Phone Santos Chicas Primary Care Provider [phone] Allergies No known active allergies Medications albuterol [...] age to complete this topic Insurance Medicare [facility] Medicare [facility] Care Teams Instructor Product Inspection Relationship Specialty Start Date End Date Santos Chicas PA [address] [place] [address], [address] [place] [address] PCP - General Physician Grievance And Appeals Coordinator 03/30/22
== END 2024-10-31 11:43 | disposition home or self-care (01) ==
LOC: HO.HMCH 10:31
PROVIDERS: PCP Physician Assistant; Visit Provider Physician Assistant
DX: Z00.00 Encounter for general adult medical examination without abnormal findings (principal); J30.89 Other allergic rhinitis; F41.1 Generalized anxiety disorder; I10 Essential (primary) hypertension; E78.2 Mixed hyperlipidemia; N06.9 Isolated proteinuria with unspecified morphologic lesion

== ENCOUNTER → 2024-10-31 10:31 | Outpatient (BNVA) | payer MEDICARE, SELFPAY | PROVIDERS: PCP Physician Assistant; Visit Provider Physician Assistant | DX: Z00.00 Encounter for general adult medical examination without abnormal findings (principal); J30.89 Other allergic rhinitis; F41.1 Generalized anxiety disorder; E78.2 Mixed hyperlipidemia; N06.9 Isolated proteinuria with unspecified morphologic lesion | CPT/HCPCS: 96127; 99397 ==

== ENCOUNTER 2024-11-29 10:58 | Outpatient (REF) | payer MEDICARE, SELFPAY ==
--- OUTSIDE RECORDS SUMMARY | 2024-11-29 12:08 | XMS_ITS | Clinical Summary ---
Author Organization [facility] Facility Address [address] [place] [address] Care Team Providers Care Coil Maker Name Role Phone Santos Chicas Primary Care Provider [phone] Allergies No known active allergies Medications albuterol [...] of 2 - PCV) 1964 Influenza Vaccine (#1) 2025 Hepatitis B Vaccine Aged Out No longe r eligible based on patient's age to complete this topic Insurance Medicare [facility] Medicare [facility] Care Teams Coil Maker Relationship Specialty Start Date End Date Santos Chicas PA [address] [place] [address], [address] [place] [address] PCP - General Physician Salvage Mechanic 03/30/22
[2024-11-30 14:09] LABS: Class Alternaria alternata 0; Class Aspergillus fumigatus 0; Class Bermuda Grass 0; Class Birch 0; Class Cat Dander 0; Class Cladosporium herbarum 0; Class Cockroach 0; Class Common Ragweed 0; Class Cottonwood 0; Class Derm. pterony 0; Class Dermatophagoides farinae 0; Class Dog Dander 0; Class Elm 0; Class Maple Box Elder 0; Class Mountain Cedar 0; Class Mouse Urine Protein 0; Class Mugwort 0; Class Oak 0; Class Penicillium crysogenum 0; Class Rough Pigweed 0; Class Sheep Sorrel 0; Class Sycamore 0; Class Timothy Grass 0; Class Walnut Tree 0; Class White Ash 0; Class White Mulberry 0; D002 - IgE D farinae <0.10 kU/L; E001 - IgE Cat Dander <0.10 kU/L; E005 - IgE Dog Dander <0.10 kU/L; G006 - IgE Timothy Grass <0.10 kU/L; I006-IgE Cockroach, German <0.10 kU/L; M002 - IgE Cladosporium herbar <0.10 kU/L; M003 - IgE Aspergillus fumigat <0.10 kU/L; M006 - IgE Alternaria alternat <0.10 kU/L; T001 IgE Maple/Box Elder <0.10 kU/L; T006 - IgE Cedar, Mountain <0.10 kU/L; T007 - IgE Oak, White <0.10 kU/L; T008 IgE Elm, American <0.10 kU/L; T010 - IgE Walnut <0.10 kU/L; T011 - IgE Maple Leaf Sycamore <0.10 kU/L; T014 - IgE Cottonwood <0.10 kU/L; T015 - IgE Ash, White <0.10 kU/L; T070 - IgE White Mulberry <0.10 kU/L; W001 - IgE Ragweed, Short <0.10 kU/L; W006 - IgE Mugwort <0.10 kU/L; W014 IgE Pigweed, Common <0.10 kU/L; W018 IgE Sheep Sorrel <0.10 kU/L
== END 2024-11-29 10:59 | disposition home or self-care (01) ==
LOC: HO.HMGCLDS 10:58
PROVIDERS: PCP Physician Assistant; Visit Provider Physician Assistant
DX: R05.9 Cough, unspecified (principal); J30.89 Other allergic rhinitis
CPT/HCPCS: 36415; 82785; 86003

== ENCOUNTER 2025-01-03 11:04 | Outpatient (REF) | payer MEDICARE, SELFPAY ==
--- OUTSIDE RECORDS SUMMARY | 2025-01-03 12:03 | XMS_ITS | Clinical Summary ---
Author Organization [facility] Facility Address [address] [place] [address] Care Team Providers Care Operations Logistics Analyst Name Role Phone Santos Chicas Primary Care Provider Allergies No known active allergies Medications albuterol [...] age to complete this topic Insurance Medicare [facility] Medicare [facility] Care Teams Operations Logistics Analyst Relationship Specialty Start Date End Date Santos Chicas PA [address] [place] [address], [address] [place] [address] PCP - General Physician Beam Worker 03/30/22
[2025-01-03 13:40] LABS: Appearance Urine Clear; Glucose Urine UA Negative (Negative); PH 6.0 (5.0-9.0); Specific Gravity - Urine 1.020 (1.005-1.025); UMIC TRIGGER UA YES
[2025-01-03 13:57] LABS: Anion Gap 12 (12-20); Blood Urea Nitrogen 18 mg/dL (9-16); Calcium 9.3 mg/dL (8.4-10.2); Carbon Dioxide 27 mmol/L (22-29); Chloride 106 mmol/L (96-108); Estimated Glomerular Filt Rate > 60; Potassium 4.3 mmol/L (3.3-5.1); Sodium 141 mmol/L (135-145)
[2025-01-03 16:06] LABS: Total Protein Urine Random 419 mg/dL (<12)
== END 2025-01-03 11:05 | disposition home or self-care (01) ==
LOC: HO.HMGCLDS 11:04
PROVIDERS: PCP Physician Assistant; Visit Provider Internal Medicine Hypertension Specialist
DX: N39.0 Urinary tract infection, site not specified (principal); R80.9 Proteinuria, unspecified
CPT/HCPCS: 36415; 80048; 81001; 82570; 84156; 87086

== ENCOUNTER 2025-01-11 09:58 | Outpatient (AMB) | payer MEDICARE, SELFPAY ==
[2025-01-11 10:07] VITALS: BP 140/68; PULSE 70; O2SAT 98; BMI 25.1
--- NOTE | 2025-01-11 10:07 | HO.NEPHOV ---
Vital Signs 01/11/25 10:07 Height 5 ft 1 in Weight 133 lb BMI 25.1 BP 140/68 H Blood Pressure Location Lt brachial Position Sitting Pulse 70 Pulse Source Pulse Oximeter Pulse Oximetry (%) 98 Oxygen Delivery Method Room Air Intake Visit Reasons: hypertension/ Conf Materials Handling Coordinator Required: No Accompanied by: Self / Same As Patient Allergies hydroxyzine Adverse Reaction (Mild, Verified 01/11/25 10:11) Palpitations losartan Adverse Reaction (Mild, Uncoded 10/31/24 11:18) Cough Medication List - Last Reconciled 01/11/25 by Pedro Denise MD acetaminophen (Tylenol Extra Strength) 500 mg PO Q6H PRN albuterol sulfate 90 mcg/actuation 2 puffs inhalation Q6H PRN 30 days amlodipine 2.5 mg PO DAILY ergocalciferol (vitamin D2) 50 mcg PO DAILY ipratropium bromide 2 sprays intranasal BID 30 days lorazepam 0.5 mg PO DAILY PRN 7 days mecobalamin (vitamin B12) 1,000 mcg PO DAILY montelukast (Singulair) 10 mg PO DAILY 90 days multivitamin 1 tab PO DAILY omega 7-qav-wkf-fish oil 1,000 (120-180) mg (Fish Oil) 1 cap PO DAILY simvastatin 20 mg PO BEDTIME spironolactone 25 mg PO DAILY valacyclovir 2,000 mg PO BID PRN HPI Comments Details: Elderly woman with HTN , referred fot HTN and Proteinuria She was on Lisinopril - Discontinued due to cought Losartan aslo caused cough Now on Amlodipine 2.5 mg QD Has mild edema Amlodipine increased to 5 mg - 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 Few days ago she had a wasp sting. No shortness of breath 03/16/24 HAd dysuria; Culture was done and positive for E Coli ;Today she is asymptomatic ! 07/17/24 : No new issues. 01/11/25 The patient is a 79-year-old female presenting with proteinuria and hypertension. Proteinuria levels increased from 3000 mg to 8000 mg, with stable kidney function. The patient is on spironolactone, vitamin D, and amlodipine, with no diabetes history. Hypertension is managed with amlodipine, spironolactone. Blood pressure was 140/68 mmHg. The patient had a COVID-19 related cough, initially thought to be from GINNY inhibitors. The cough resolved, and the patient declined a kidney biopsy. MEDICATIONS: - Spironolactone - Vitamin D - Amlodipine DIAGNOSTIC RESULTS: - Proteinuria: Increased from 3000 mg to 8000 mg - Potassium: 4.3 mmol/L, within normal range PFSH Medical History Protein in urine COVID-19 Post-menopausal Screening for hypothyroidism Surgical History History of cataract surgery Family History Father No problems noted. Mother No problems noted. Son In good health Son In good health Son In good health Social History Housing: House Alcohol intake: current Alcohol intake frequency: holidays/special occasions only Alcohol type: wine Patient Tobacco Use Status: Never used Tobacco e-Cigarette/Vaping Use: Never Used Second Hand Smoke Exposure: No service: No Current occupational status: retired Cognitive needs: No Hearing needs: No Vision needs: Yes (reading glasses) Physical Exam Vital Signs: Last Vital Signs Pulse 70 01/11/25 10:07 BP 140/68 H 01/11/25 10:07 Pulse Ox 98 01/11/25 10:07 Oxygen Delivery Method Room Air 01/11/25 10:07 BMI result Body Mass Index 25.1 Const General: comfortable Nutritional Appearance: well nourished Orientation/consciousness: patient oriented x3 HEENT Head: No normal to inspection Mouth: moist mucous membranes Eyes General: appearance normal, both eyes and all related structures Visual Roque: normal visual roque by confrontation Neck Neck: Yes supple and Yes no JVD Resp Effort & Inspection: normal respiratory effort and respiratory effort not decreased Auscultation: clear to auscultation bilaterally, no rales and rub present Cardio Jugular venous distension: no JVD Palpation: no palpable S3 and no palpable S4 Heart sounds: no rubs GI Inspection: Yes normal to inspection Palpation (GI): Soft to palpation and nontender Percussion: No Fluid wave present Auscultation: normal bowel sounds General: Yes no CVA tenderness Back/Spine/Pelvis Back: no CVA tenderness Skin General skin exam: no rashes or lesions noted Neuro General: patient oriented x3 Extrem General: Yes no pedal edema and No clubbing Results Reviewed Nephrology Results: Hgb, (12.0-16.0) 12.0 g/dl 10/27/24 WBC, (4.8-10.8) 6.5 X10*3/uL 10/27/24 Plt Count, (160-400) 274 X10*3/uL 10/27/24 Sodium, (135-145) 141 mmol/L 01/03/25 Potassium, (3.3-5.1) 4.3 mmol/L 01/03/25 Chloride, (96-108) 106 mmol/L 01/03/25 Carbon Dioxide, (22-29) 27 mmol/L 01/03/25 BUN, (9-16) 18 mg/dL H 01/03/25 Creatinine, (0.5-1.4) 0.72 mg/dL 01/03/25 Calcium, (8.4-10.2) 9.3 mg/dL 01/03/25 Urine Protein, (Neg-Trace) 300 (3+) mg/dL H 01/03/25 Urine Creatinine 47.57 mg/dL 01/03/25 Renal US 04/24/22 Assessment & Plan Assessment & Plan (1) Proteinuria: Code(s): R80.9 - Proteinuria, unspecified Category: Medical Qualifiers: Isolated proteinuria type: with unspecified morphologic lesion Proteinuria type: isolated Qualified Code(s): N06.9 - Isolated proteinuria with unspecified morphologic lesion (2) Essential (primary) hypertension: Code(s): I10 - Essential (primary) hypertension Category: Medical (3) Recurrent UTI: Code(s): N39.0 - Urinary tract infection, site not specified Category: Medical (4) Protein in urine: Code(s): R80.9 - Proteinuria, unspecified Category: Medical Qualifiers: Proteinuria type: unspecified Qualified Code(s): R80.9 - Proteinuria, unspecified Plan 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 Keep Amlodipine at 2.5 mg QD ; Add LOSARTAN 25 mg QD Keep Spironolactone 25 mg QD to block ZOIE and optimize BP Watch K Will increase Losartan as tolerated and may need to DC AMlodipine based on BP Orders: Orders Creatinine Urine 3 Months N06.9 - Isolated proteinuria with unspecified morphologic lesion Basic Metabolic Panel 3 Months N06.9 - Isolated proteinuria with unspecified morphologic lesion UA and rflx microscopic 3 Months N06.9 - Isolated proteinuria with unspecified morphologic lesion Total Protein Urine Random 3 Months N06.9 - Isolated proteinuria with unspecified morphologic lesion Medications: New losartan 25 mg PO DAILY 90 tabs 1RF Coding Level of Care Code Est Pt Level 4 (68605) Diagnoses 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 Isolated proteinuria type: with unspecified morphologic lesion Proteinuria type: isolated Essential (primary) hypertension I10 Recurrent UTI N39.0
--- OUTSIDE RECORDS SUMMARY | 2025-01-11 11:23 | XMS_ITS | Clinical Summary ---
Author Organization [facility] Facility Address [address] [place] [address] Care Team Providers Care Skull Chopper Name Role Phone Santos Chicas Primary Care Provider [phone] Allergies No known active allergies Medications albuterol [...] age to complete this topic Insurance Medicare [facility] Medicare [facility] Care Teams Skull Chopper Relationship Specialty Start Date End Date Santos Chicas PA [address] [place] [address], [address] [place] [address] PCP - General Physician Qa Analyst 03/30/22
== END 2025-01-11 10:37 | disposition home or self-care (01) ==
LOC: HO.HKA 09:59
PROVIDERS: PCP Physician Assistant; Visit Provider Internal Medicine Hypertension Specialist
DX: N06.9 Isolated proteinuria with unspecified morphologic lesion (principal); I10 Essential (primary) hypertension; N39.0 Urinary tract infection, site not specified; R80.9 Proteinuria, unspecified
CPT/HCPCS: 99214

== ENCOUNTER → 2025-01-11 09:58 | Outpatient (BNVA) | payer MEDICARE, SELFPAY | PROVIDERS: PCP Physician Assistant; Visit Provider Internal Medicine Hypertension Specialist | DX: N06.9 Isolated proteinuria with unspecified morphologic lesion (principal); I10 Essential (primary) hypertension; N39.0 Urinary tract infection, site not specified | CPT/HCPCS: 99212 ==

== ENCOUNTER 2025-04-06 12:15 | Outpatient (REF) | payer MEDICARE, SELFPAY ==
[2025-04-06 14:40] LABS: Anion Gap 10 (12-20); Blood Urea Nitrogen 17 mg/dL (9-16); Calcium 9.5 mg/dL (8.4-10.2); Carbon Dioxide 29 mmol/L (22-29); Chloride 108 mmol/L (96-108); Estimated Glomerular Filt Rate > 60; Potassium 4.1 mmol/L (3.3-5.1); Sodium 143 mmol/L (135-145)
[2025-04-06 16:13] LABS: Appearance Urine Clear; Glucose Urine UA Negative (Negative); PH 6.0 (5.0-9.0); Specific Gravity - Urine 1.015 (1.005-1.025); UMIC TRIGGER UA YES
[2025-04-06 16:46] LABS: Total Protein Urine Random 310 mg/dL (<12)
--- OUTSIDE RECORDS SUMMARY | 2025-04-06 18:16 | XMS_ITS | Clinical Summary ---
Author Organization [facility] Facility Address [address] [place] [address] Care Team Providers Care Management Professional Name Role Phone Santos Chicas Primary Care Provider [phone] Allergies No known active allergies Medications albuterol [...] age to complete this topic Insurance Medicare [facility] Medicare [facility] Care Teams Management Professional Relationship Specialty Start Date End Date Santos Chicas PA [address] [place] [address], [address] [place] [address] PCP - General Physician Sports Broadcasting Internship 03/30/22
== END 2025-04-06 12:16 | disposition home or self-care (01) ==
LOC: HO.HMGCLDS 12:15
PROVIDERS: PCP Physician Assistant; Visit Provider Internal Medicine Hypertension Specialist
DX: N06.9 Isolated proteinuria with unspecified morphologic lesion (principal)
CPT/HCPCS: 36415; 80048; 81001; 82570; 84156

== ENCOUNTER 2025-04-12 10:30 | Outpatient (AMB) | payer MEDICARE, SELFPAY ==
[2025-04-12 10:36] VITALS: BP 148/70; PULSE 75; O2SAT 99; BMI 25.6
--- NOTE | 2025-04-12 10:36 | HO.NEPHOV_ITS ---
Vital Signs 04/12/25 10:36 Height 5 ft 1 in Weight 135 lb 8 oz BMI 25.6 BP 148/70 H Blood Pressure Location Lt brachial Position Sitting Pulse 75 Pulse Source Pulse Oximeter Pulse Oximetry (%) 99 Oxygen Delivery Method Room Air Intake Visit Reasons: 3 MO FU Train Clerk Required: No Accompanied by: Self / Same As Patient Allergies hydroxyzine Adverse Reaction (Mild, Verified 04/12/25 10:36) Palpitations losartan Adverse Reaction (Mild, Uncoded 10/31/24 11:18) Cough Medication List - Last Reconciled 04/12/25 by Pedro Denise MD acetaminophen (Tylenol Extra Strength) 500 mg PO Q6H PRN albuterol sulfate 90 mcg/actuation 2 puffs inhalation Q6H PRN 30 days amlodipine 2.5 mg PO DAILY ergocalciferol (vitamin D2) 50 mcg PO DAILY ipratropium bromide 2 sprays intranasal BID 30 days lorazepam 0.5 mg PO DAILY PRN 7 days losartan 50 mg PO DAILY mecobalamin (vitamin B12) 1,000 mcg PO DAILY montelukast (Singulair) 10 mg PO DAILY 90 days multivitamin 1 tab PO DAILY omega 3-zil-xhw-fish oil 1,000 (120-180) mg (Fish Oil) 1 cap PO DAILY simvastatin 20 mg PO BEDTIME spironolactone 25 mg PO DAILY valacyclovir 2,000 mg PO BID PRN HPI Comments Details: Elderly woman with HTN , referred fot HTN and Proteinuria She was on Lisinopril - Discontinued due to cought Losartan aslo caused cough Now on Amlodipine 2.5 mg QD Has mild edema Amlodipine increased to 5 mg - 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 Few days ago she had a wasp sting. No shortness of breath 03/16/24 HAd dysuria; Culture was done and positive for E Coli ;Today she is asymptomatic ! 07/17/24 : No new issues. 01/11/25 The patient is a 79-year-old female presenting with proteinuria and hypertension. Proteinuria levels increased from 3000 mg to 8000 mg, with stable kidney function. The patient is on spironolactone, vitamin D, and amlodipine, with no diabetes history. Hypertension is managed with amlodipine, spironolactone. Blood pressure was 140/68 mmHg. The patient had a COVID-19 related cough, initially thought to be from GINNY inhibitors. The cough resolved, and the patient declined a kidney biopsy. MEDICATIONS: - Spironolactone - Vitamin D - Amlodipine DIAGNOSTIC RESULTS: - Proteinuria: Increased from 3000 mg to 8000 mg - Potassium: 4.3 mmol/L, within normal range 04/12/25 The patient is a 79 year old individual presenting for follow-up of nephrotic range proteinuria. The patient has refused a kidney biopsy in the past and continues to decline it. The patient reports that the proteinuria has decreased slightly and notes that foamy urine has almost disappeared. The patient also reports that hematuria has decreased. The patient reports no cough, shortness of breath, nausea, vomiting, dysuria, or leg swelling. The patient also denies experiencing any urinary tract infections. Regarding hypertension, the patient monitors blood pressure at home, with a recent reading of 112/16 mmHg yesterday. The patient is taking two blood pressure medications, including losartan 25 mg at night, and reports that splitting the doses between morning and night has worked well. The patient denies any cough associated with losartan. [facility] Medical History Protein in urine COVID-19 Post-menopausal Screening for hypothyroidism Surgical History History of cataract surgery Family History Father No problems noted. Mother No problems noted. Son In good health Son In good health Son In good health Social History Housing: House Alcohol intake: current Alcohol intake frequency: holidays/special occasions only Alcohol type: wine Patient Tobacco Use Status: Never used Tobacco e-Cigarette/Vaping Use: Never Used Second Hand Smoke Exposure: No service: No Current occupational status: retired Cognitive needs: No Hearing needs: No Vision needs: Yes (reading glasses) Physical Exam Vital Signs: Last Vital Signs Pulse 75 04/12/25 10:36 BP 148/70 H 04/12/25 10:36 Pulse Ox 99 04/12/25 10:36 Oxygen Delivery Method Room Air 04/12/25 10:36 BMI result Body Mass Index 25.6 Comfortable Neck supple no JVD. Lungs entry equal no rales. Heart S1-S2 heard no gallop or rub. Abdomen soft nontender. Neuro alert awake oriented. No asterixis. Extremities no edema. Results Reviewed Nephrology Results: Hgb, (12.0-16.0) 12.0 g/dl 10/27/24 WBC, (4.8-10.8) 6.5 X10*3/uL 10/27/24 Plt Count, (160-400) 274 X10*3/uL 10/27/24 Sodium, (135-145) 143 mmol/L 04/06/25 Potassium, (3.3-5.1) 4.1 mmol/L 04/06/25 Chloride, (96-108) 108 mmol/L 04/06/25 Carbon Dioxide, (22-29) 29 mmol/L 04/06/25 BUN, (9-16) 17 mg/dL H 04/06/25 Creatinine, (0.5-1.4) 0.71 mg/dL 04/06/25 Calcium, (8.4-10.2) 9.5 mg/dL 04/06/25 Urine Protein, (Neg-Trace) 300 (3+) mg/dL H 04/06/25 Urine Creatinine 56.12 mg/dL 04/06/25 Renal US 04/24/22 Assessment & Plan Assessment & Plan (1) Proteinuria: Code(s): R80.9 - Proteinuria, unspecified Category: Medical Qualifiers: Isolated proteinuria type: with unspecified morphologic lesion Proteinuria type: isolated Qualified Code(s): N06.9 - Isolated proteinuria with unspecified morphologic lesion (2) Essential (primary) hypertension: Code(s): I10 - Essential (primary) hypertension Category: Medical (3) Protein in urine: Code(s): R80.9 - Proteinuria, unspecified Category: Medical Qualifiers: Proteinuria type: unspecified Qualified Code(s): R80.9 - Proteinuria, unspecified Plan Elderly woman with HTN and nephrotic range proteinuria and normal renal function Unable to tolerate ACEi - due to cough Tolerating Losartan Still has proteinuria - about 4 gm and now around 3 gm Serologies were all normal Offered renal biopsy -She does not want biopsy! Keep Amlodipine at 2.5 mg QD ; Keep LOSARTAN INCREASE dose to 50 mg and titrate as tolerated Keep Spironolactone 25 mg QD to block ZOIE and optimize BP Watch K Orders: Orders Creatinine Urine 4 Months I10 - Essential (primary) hypertension, R80.9 - Proteinuria, unspecified Total Protein Urine Random 4 Months I10 - Essential (primary) hypertension, R80.9 - Proteinuria, unspecified UA and rflx microscopic 4 Months I10 - Essential (primary) hypertension, R80.9 - Proteinuria, unspecified Basic Metabolic Panel 4 Months I10 - Essential (primary) hypertension, R80.9 - Proteinuria, unspecified Medications: Changed From losartan 25 mg PO DAILY 90 tabs 1RF To losartan 50 mg PO DAILY 90 tabs 1RF Coding Level of Care Code Est Pt Level 4 (19786) Diagnoses 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 Isolated proteinuria type: with unspecified morphologic lesion Proteinuria type: isolated Essential (primary) hypertension I10
== END 2025-04-12 10:49 | disposition home or self-care (01) ==
LOC: HO.HKA 10:31
PROVIDERS: PCP Physician Assistant; Visit Provider Internal Medicine Hypertension Specialist
DX: N06.9 Isolated proteinuria with unspecified morphologic lesion (principal); I10 Essential (primary) hypertension; R80.9 Proteinuria, unspecified
CPT/HCPCS: 99214

== ENCOUNTER → 2025-04-12 10:30 | Outpatient (BNVA) | payer MEDICARE, SELFPAY | PROVIDERS: PCP Physician Assistant; Visit Provider Internal Medicine Hypertension Specialist | DX: I10 Essential (primary) hypertension (principal); N06.9 Isolated proteinuria with unspecified morphologic lesion; R80.9 Proteinuria, unspecified | CPT/HCPCS: 99212 ==

== ENCOUNTER 2025-05-10 13:22 | Outpatient (REF) | payer MEDICARE, SELFPAY ==
[2025-05-10 17:39] LABS: Resp Syncy Virus RNA Qual PCR NEGATIVE (Negative); SARS COV2 PCR INHOUSE NEGATIVE (Negative)
== END 2025-05-10 13:23 | disposition home or self-care (01) ==
LOC: HO.LAB 13:22
PROVIDERS: Physician Assistant Medical; PCP Physician Assistant
DX: Z03.818 Encounter for observation for suspected exposure to other biological agents ruled out (principal)
CPT/HCPCS: 87637; 99212

== ENCOUNTER 2025-05-10 13:22 | Outpatient (AMB) | payer MEDICARE, SELFPAY ==
[2025-05-10 14:04] VITALS: BP 144/80; PULSE 58; TEMP 36.6; O2SAT 97; BMI 25.5
--- NOTE | 2025-05-10 14:04 | AM.OFFWIN_ITS ---
Intake Vital Signs 05/10/25 14:04 Height 5 ft 1 in Weight 135 lb BMI 25.5 BP 144/80 H Blood Pressure Location Lt brachial Position Sitting Pulse 58 Pulse Source Pulse Oximeter Temp 98 F Temp Source Oral Pulse Oximetry (%) 97 Oxygen Delivery Method Room Air Intake Visit Reasons: PE Sinus congestion, asthma Intake Note: Patient presents c/o asthma exacerbation & sinus congestion x2 weeks. Patient Tobacco Use Status: Never used Tobacco Allergies losartan Allergy (Verified 05/10/25 14:09) Cough hydroxyzine Adverse Reaction (Mild, Verified 05/10/25 14:09) Palpitations HPI HPI Comments History of Present Illness Details History - The patient is a 80-year-old female wh o presents with sinus congestion and an exacerbation of her asthma. - Her symptoms began approximately two w eeks ago and have worsened with the recent cold weather. - She reports a productive cough with ph legm that varies in color from yellow to green to clear. - The patient is eating and drinking nor candido. - For her asthma, she uses an albuterol inhaler. - She has also been taking an over-the-c ounter cough medicine with an expectorant but feels it is not effective. - She has a history of similar sinus iss ues and recalls being treated successfully with prednisone and azithromycin (Z-Edgar) in September. - She denies recent travel, sick contact s, CP, SOB, wheezing, abd pain, or n/v/d. Physical Exam General: Cooperative, healthy appearing, comfortable and no acute distress Orientation/consciousness: Patient oriented x3 Limitations: No limitations Head: Normal to inspection Ears: Hearing grossly normal bilaterally, external ears normal and TM's normal bilaterally Nose: Normal external nose present, normal nares present, and no nasal discharge present. Face and sinus: Sinuses nontender to palpation. Mouth: Normal oral and palatal mucosa present and moist mucous membranes noted. Throat: Tonsils normal. Uvula is midline. Posterior oropharynx with erythema and no exudates. Eyes: Appearance normal, both eyes and all related structures Neck: Normal visual inspection, full ROM. No lymphadenopathy noted. Respiratory: Clear to auscultation bilaterally. Normal respiratory effort, able to speak in complete sentences. No respiratory distress, not tachypneic, no tripod positioning and no use of accessory muscles. Cardiovascular: Regular rate and rhythm. Normal S1 and S2 Skin: No rashes or lesions noted Patient was informed and verbally consented to the use of an ambient scribe for clinic note documentation during this visit [facility] Medical History Protein in urine COVID-19 Post-menopausal Screening for hypothyroidism Surgical History History of cataract surgery Family History Father No problems noted. Mother No problems noted. Son In good health Son In good health Son In good health Social History Housing: House Alcohol intake: current Alcohol intake frequency: holidays/special occasions only Alcohol type: wine Patient Tobacco Use Status: Never used Tobacco e-Cigarette/Vaping Use: Never Used Second Hand Smoke Exposure: No service: No Current occupational status: retired Cognitive needs: No Hearing needs: No Vision needs: Yes (reading glasses) Review of Systems Const All systems reviewed & are unremarkable except as noted in HPI and below Physical Exam Vital Signs: Last Vital Signs Temp 98 F 05/10/25 14:04 Pulse 58 05/10/25 14:04 BP 144/80 H 05/10/25 14:04 Pulse Ox 97 05/10/25 14:04 Oxygen Delivery Method Room Air 05/10/25 14:04 BMI result Body Mass Index 25.5 Assessment & Plan Assessment & Plan (1) Sinus congestion: Code(s): R09.81 - Nasal congestion (2) Asthma exacerbation: Code(s): J45.901 - Unspecified asthma with (acute) exacerbation Qualifiers: Asthma severity: mild Asthma persistence: intermittent Qualified Code(s): J45.21 - Mild intermittent asthma with (acute) exacerbation Plan Most likely URI vs Acute Sinusitis vs Asthma Exacerbation vs covid vs flu plan - The patient presents with a two-week history of sinus congestion and worsening asthma, accompanied by a productive cough with colored sputum, suggestive of an acute upper respiratory infection with a possible secondary bacterial component triggering an asthma flare. - A nasal swab for viral studies will be performed to rule out influenza, as it is prevalent. - A prescription for prednisone 40 mg daily for five days will be provided. - An antibiotic and a cough medicine will also be prescribed. - The patient was advised to start the medications. - She was instructed that if the viral swab returns positive for influenza, she can discontinue the antibiotic. - The results of the viral swab will be communicated to the patient tomorrow. - Prescriptions will be sent to the [facility] pharmacy. Orders: Orders SARS-CoV2/FLU/RSV Today R09.89 - Other specified symptoms and signs involving the circulatory and respiratory systems Medications: New prednisone 40 mg (2 x 20 mg) PO DAILY 10 tabs 0RF 5 days azithromycin For 250 mg dose pack: take 500 mg today (day 1), then 250 mg for 4 days (days 2-5) PO 6 tabs 0RF benzonatate 100 mg PO bid-tid PRN 21 caps 0RF Cough 7 days Coding Level of Care Code Est Pt Level 3 (66867) Diagnoses Sinus congestion R09.81 Mild intermittent asthma with exacerbation J45.21 Asthma severity: mild Asthma persistence: intermittent
--- OUTSIDE RECORDS SUMMARY | 2025-05-10 17:26 | XMS_ITS | Clinical Summary ---
Author Organization [facility] Facility Address [address] [place] [address] Care Team Providers Care Paper Cleaner Name Role Phone Santos Chicas Primary Care Provider [phone] Allergies No known active allergies Medications albuterol [...] age to complete this topic Insurance Medicare [facility] Medicare [facility] Care Teams Paper Cleaner Relationship Specialty Start Date End Date Santos Chicas PA [address] [place] [address], [address] [place] [address] PCP - General Physician Bottle Machine Operator 03/30/22
== END 2025-05-10 15:21 | disposition home or self-care (01) ==
PROVIDERS: PCP Physician Assistant; Visit Provider Physician Assistant Medical
DX: R09.81 Nasal congestion (principal); J45.21 Mild intermittent asthma with (acute) exacerbation